=== PATIENT | female | born 1940 | race Caucasian/White ===

== ENCOUNTER 2020-09-01 13:37 | Emergency (ER) | payer MEDICARE, SELFPAY ==
--- NOTE | 2020-09-01 | ECG_ITS ---
Test Reason : CHESTPAIN Blood Pressure : / mmHG Vent. Rate : 070 BPM Atrial Rate : 070 BPM P-R Int : 132 ms QRS Dur : 064 ms QT Int : 430 ms P-R-T Axes : 000 -25 122 degrees QTc Int : 464 ms Sinus rhythm with marked sinus arrhythmia with occasional Premature ventricular complexes Nonspecific ST and T wave abnormality Abnormal ECG When compared with ECG of 01-JAN-2015 13:49, Premature ventricular complexes are now Present Aberrant conduction is no longer Present Nonspecific T wave abnormality now evident in Anterolateral leads Referred By: Generic ED Physician Electronically Signed By:Frederick Amin
[2020-09-01 14:55] VITALS: BP 174/84; PULSE 78; RESP 16; TEMP 36; O2SAT 98; BMI 24.5
[2020-09-01 17:13] LABS: Basophils Percent Auto 0.2 % (0-2); Eosinophils Absolute Auto 0.2 X10*3/uL (0.0-0.4); Eosinophils Percent Auto 1.7 % (0-4); Hematocrit 41.6 % (37-47); Hemoglobin 13.8 g/dl (12.0-16.0); Imm Gran Abs Auto 0.04 X10*3/uL (0.00-0.03); Imm Gran Pct Auto 0.3 % (0.0-0.4); Lymphocytes Absolute Auto 2.5 X10*3/uL (1.2-4.9); MANUAL DIFF FLAG NO; Mean Corpuscular HGB Conc 33.2 g/dl (31.0-35.0); Mean Corpuscular Hemoglobin 31.9 pg (27.0-33.0); Mean Corpuscular Volume 96.3 fL (80-98); Mean Platelet Volume 10.7 fL (9.4-12.3); Monocytes Absolute Auto 0.8 X10*3/uL (0.1-1.2); Monocytes Percent Auto 6.7 % (2-11); Neutrophils Absolute Auto 8.2 X10*3/uL (2.0-8.3); Neutrophils Percent Auto 70.1 % (45-73); Platelet Count 204 X10*3/uL (160-400); Red Blood Count 4.32 X10*6/uL (4.20-5.50); Red Cell Distribution Width 13.8 % (11.0-16.0); White Blood Count 11.8 X10*3/uL (4.8-10.8)
--- NOTE | 2020-09-01 17:21 | XR_ITS ---
EXAMINATION: XR CHEST XR THORACIC SPINE XR LUMBAR SPINE CLINICAL INFORMATION: Pain status post fall COMPARISON: Chest x-ray dated 09/23/2019 TECHNIQUE: Portable AP view of the chest AP and lateral views of the thoracic spine AP, lateral and coned-down views of the lumbosacral spine FINDINGS: Chest: Normal symmetric lung volumes. No parenchymal consolidation. No pleural effusion. No pneumothorax. Cardiomediastinal silhouette and pulmonary vascularity are within normal limits. No acute osseous abnormalities. Thoracic spine: No acute fractures or subluxations. Vertebral body heights maintained. Endplate osteophytes present throughout the thoracic spine. Paraspinal soft tissues unremarkable. Lumbar spine: No acute fracture or subluxation. Posterior spinal fusion hardware present at L4-L5 consisting of bilateral paraspinal rods and transverse screws, and interbody spacer at L4-L5. Vertebral body heights maintained. There is loss of disc space height at L2-L3, L3-L4 and L5-S1. Moderate levoconvex lumbar scoliosis centered at L3-L4. Paraspinal soft tissues unremarkable. XR/XR thoracic spine 2V IMPRESSION: * Lungs are clear. No rib fractures or pneumothorax. * No acute fracture or subluxation in the thoracic or lumbar spine. * No evidence of hardware failure or complication with respect to the instrument posterior spinal fusion at L4-L5.
--- NOTE | 2020-09-01 17:21 | XR_ITS ---
EXAMINATION: XR CHEST XR THORACIC SPINE XR LUMBAR SPINE CLINICAL INFORMATION: Pain status post fall COMPARISON: Chest x-ray dated 09/23/2019 TECHNIQUE: Portable AP view of the chest AP and lateral views of the thoracic spine AP, lateral and coned-down views of the lumbosacral spine FINDINGS: Chest: Normal symmetric lung volumes. No parenchymal consolidation. No pleural effusion. No pneumothorax. Cardiomediastinal silhouette and pulmonary vascularity are within normal limits. No acute osseous abnormalities. Thoracic spine: No acute fractures or subluxations. Vertebral body heights maintained. Endplate osteophytes present throughout the thoracic spine. Paraspinal soft tissues unremarkable. Lumbar spine: No acute fracture or subluxation. Posterior spinal fusion hardware present at L4-L5 consisting of bilateral paraspinal rods and transverse screws, and interbody spacer at L4-L5. Vertebral body heights maintained. There is loss of disc space height at L2-L3, L3-L4 and L5-S1. Moderate levoconvex lumbar scoliosis centered at L3-L4. Paraspinal soft tissues unremarkable. XR/XR chest 1V IMPRESSION: * Lungs are clear. No rib fractures or pneumothorax. * No acute fracture or subluxation in the thoracic or lumbar spine. * No evidence of hardware failure or complication with respect to the instrument posterior spinal fusion at L4-L5.
--- NOTE | 2020-09-01 17:23 | ED.CHESTPAIN ---
HPI - Chest Pain General Chief Complaint: Chest Pain Stated Complaint: chest pain,fell and back pain Time Seen by Provider: 09/01/20 17:12 Source: patient Mode of arrival: ambulatory Limitations: no limitations History of Present Illness HPI narrative: Patient comes to the emergency room complaining of thoracic spine pain anxiety void pain. Patient states 2 days ago, patient was out shopping, her foot got stuck in the shopping cart and fell landing on her back. Patient states she was able to get up, however over the next 2 days, she started complaining of back pain. Patient denies numbness tingling in upper lower extremities. Patient states sometimes it hurts more whenever she coughs or if she takes deep breaths. Patient denies any chest pain. Patient did not hit her head, did not lose consciousness, not on blood thinners. Earlier this morning patient took tramadol and helped the pain. Related Data Home Medications Medication Instructions Recorded Confirmed carvedilol 1 tab PO BID 09/01/20 09/01/20 tizanidine 1 tab PO BEDTIME 09/01/20 09/01/20 tramadol 1 tab PO Q6H PRN 09/01/20 09/01/20 trazodone 1 tab PO BEDTIME PRN 09/01/20 09/01/20 Previous Rx's Medication Instructions Recorded hydrocodone-acetaminophen [Vicodin 1 tab PO Q6-8H PRN #14 tab 09/01/20 HP] Allergies Allergy/AdvReac Type Severity Reaction Status Date / Time oxycodone [From OXYCONTIN] Allergy Intermediate NAUSEA & Unverified 06/03/20 14:56 VOMITING, hallucinations, vomiting OxyContin AdvReac Unknown pass out Uncoded 05/21/20 00:00 Review of Systems Review of Systems: Constitutional : No Weight loss, No Fever, No Chills, No Night Sweats, No Fatigue, No Malaise ENT/Mouth : No Hearing loss, No Ear Pain, No Nasal Congestion, No Sinus Pain, No Hoarseness, No sore throat, No Rhinorrhea, No Swallowing Difficulty Eyes: No Eye Pain, No Swelling, No Redness, No Foreign Body, No Discharge, No Vision Changes Cardiovascular : No Chest Pain, No SOB, No Dyspnea on Exertion, No Orthopnea, No Edema, No Palpitations Respiratory : No Cough, No Sputum, No Wheezing, No Smoke Exposure, No Dyspnea Gastrointestinal : No Nausea, No Vomiting, No Diarrhea, No Constipation, No abdominal Pain, No Hematochezia, No Melena Genitourinary : no irregular bleeding, No Dysuria, No Urinary Frequency, No Hematuria, No Urinary Incontinence, No Urgency, No Flank Pain, No Urinary Flow Changes, No Hesitancy Musculoskeletal : Complaining of back pain in the thoracic area and on the chest over the xyphoid process,No joint pain, No Myalgias, No Joint Swelling Skin : No Skin Lesions, No rash, 3 ecchymosis in the left arm Neuro : No Weakness, No Numbness, No Paresthesias, No Loss of Consciousness, No Dizziness, No Headache Psych : No Anxiety/Panic, No Depression, No SI/HI/AH/VH, No Social Issues, Heme/Lymph: No Bruising, No Bleeding,No Lymphadenopathy Endocrine : No Polyuria, No Polydipsia, No Temperature Intolerance [facility] Past Medical History Medical History (Updated 09/01/20 @ 19:17 by Shani Carey MD) Brain aneurysm Diverticulosis No known health problems Social History Social History Alcohol intake: never Smoked in Last 30 Days: No Use of substances other than those prescribed or required for medical reasons: No Advance Directives: No Advance Directives Information Provided: Yes Physical Exam Vital Signs: Vital Signs: Last Vital Signs Temp 96.8 F 09/01/20 14:55 Pulse 78 09/01/20 17:42 Resp 16 09/01/20 17:42 BP 181/91 H 09/01/20 17:42 Pulse Ox 98 09/01/20 17:42 Body Mass Index 24.5 Appearance: Alert. Oriented X3. No acute distress. Eyes: Pupils equal, round and reactive to light. ENT: Pharynx normal. Neck: Normal inspection. Neck supple. No lymph nodes noted. No crepitus CVS: Normal heart rate and rhythm. Pulses normal. Normal S1 and S2 Respiratory: No respiratory distress. Breath sounds normal. No Wheezing. No rales , pain to palpation over the xiphoid process Abdomen: Soft and nontender. No rigidity. No distention. good BS x4 Back: No C-spine tenderness, mild to moderate pain to palpation over the midthoracic area and upper lumbar area, patient able to sit up by herself Skin: Skin warm and dry. Three ecchymosis in the left upper extremity, Extremities: No lower extremity edema. No lower extremity edema. No Lacerations. No Rash, patient able to flex and extend all extremities, no hip pain, patient ambulatory Neuro: Oriented X 3. No motor deficit. No sensory deficit. Moving all extermities. No slurred speech. Course Course Course Narrative: I discussed the x-rays with the patient, no acute fracture. At this time, PE is not suspected, wells score for PE 0, patient is not tachycardic, no shortness of breath, oxygen saturation 98%. No previous history of PEs, no recent history of immobility I discussed with the patient that we could offer physical therapy/short-term rehab, case management consult, patient declined. MDM - Chest Pain Lab Data Result diagrams: 09/01/20 17:06 09/01/20 17:06 Labs: Lab Results 09/01/20 09/01/20 09/01/20 Range/Units 17:06 17:06 17:06 WBC 11.8 H (4.8-10.8) X10*3/uL RBC 4.32 (4.20-5.50) X10*6/uL Hgb 13.8 (12.0-16.0) g/dl Hct 41.6 (37-47) % MCV 96.3 (80-98) fL MCH 31.9 (27.0-33.0) pg MCHC 33.2 (31.0-35.0) g/dl RDW 13.8 (11.0-16.0) % Plt Count 204 (160-400) X10*3/uL MPV 10.7 (9.4-12.3) fL Immature Gran % (Auto) 0.3 (0.0-0.4) % Neut % (Auto) 70.1 (45-73) % Lymph % (Auto) 21.0 (20-40) % Bel[place]ami % (Auto) 6.7 (2-11) % Eos % (Auto) 1.7 (0-4) % Baso % (Auto) 0.2 (0-2) % Lymph # (Auto) 2.5 (1.2-4.9) X10*3/uL [place] # (Auto) 0.8 (0.1-1.2) X10*3/uL Eos # (Auto) 0.2 (0.0-0.4) X10*3/uL Baso # (Auto) 0.0 (0.0-0.2) X10*3/uL Abs Immat Gran (auto) 0.04 H (0.00-0.03) X10*3/uL Absolute Neuts (auto) 8.2 (2.0-8.3) X10*3/uL Absolute Nucleated RBC 0.000 (0.0-0.012) X10*3/uL Nucleated RBC % (auto) 0.0 (0.0-0.2) /100WBC Hold Blue Top SEE NOTE Sodium 141 (135-145) mmol/L Potassium 4.4 (3.3-5.1) mmol/l Chloride 104 (96-108) mmol/L Carbon Dioxide 28 (22-29) mmol/L Anion Gap 13 (12-20) BUN 24 H (9-16) mg/dL Creatinine 1.02 (0.5-1.4) mg/dL Estim Creat Clear Calc 37.7 Estimated GFR 52 Random Glucose 98 (60-115) mg/dL Calcium 9.2 (8.4-10.2) mg/dL Troponin I High Sens (<3.5-17.0) ng/L 09/01/ Range/Units 17:06 WBC (4.8-10.8) X10*3/uL RBC (4.20-5.50) X10*6/uL Hgb (12.0-16.0) g/dl Hct (37-47) % MCV (80-98) fL MCH (27.0-33.0) pg MCHC (31.0-35.0) g/dl RDW (11.0-16.0) % Plt Count (160-400) X10*3/uL MPV (9.4-12.3) fL Immature Gran % (Auto) (0.0-0.4) % Neut % (Auto) (45-73) % Lymph % (Auto) (20-40) % [place]ami % (Auto) (2-11) % Eos % (Auto) (0-4) % Baso % (Auto) (0-2) % Lymph # (Auto) (1.2-4.9) X10*3/uL [place]ami # (Auto) (0.1-1.2) X10*3/uL Eos # (Auto) (0.0-0.4) X10*3/uL Baso # (Auto) (0.0-0.2) X10*3/uL Abs Immat Gran (auto) (0.00-0.03) X10*3/uL Absolute Neuts (auto) (2.0-8.3) X10*3/uL Absolute Nucleated RBC (0.0-0.012) X10*3/uL Nucleated RBC % (auto) (0.0-0.2) /100WBC Hold Blue Top Sodium (135-145) mmol/L Potassium (3.3-5.1) mmol/l Chloride (96-108) mmol/L Carbon Dioxide (22-29) mmol/L Anion Gap (12-20) BUN (9-16) mg/dL Creatinine (0.5-1.4) mg/dL Estim Creat Clear Calc Estimated GFR Random Glucose (60-115) mg/dL Calcium (8.4-10.2) mg/dL Troponin I High Sens 5.1 (<3.5-17.0) ng/L Imaging Data Lumbar spine x-ray: Radiologist's impression: Chest: Normal symmetric lung volumes. No parenchymal consolidation. No pleural effusion. No pneumothorax. Cardiomediastinal silhouette and pulmonary vascularity are within normal limits. No acute osseous abnormalities. Thoracic spine: No acute fractures or subluxations. Vertebral body heights maintained. Endplate osteophytes present throughout the thoracic spine. Paraspinal soft tissues unremarkable. Lumbar spine: No acute fracture or subluxation. Posterior spinal fusion hardware present at L4-L5 consisting of bilateral paraspinal rods and transverse screws, and interbody spacer at L4-L5. Vertebral body heights maintained. There is loss of disc space height at L2-L3, L3-L4 and L5-S1. Moderate levoconvex lumbar scoliosis centered at L3-L4. Paraspinal soft tissues unremarkable. XR/XR lumbar spine 2-3V IMPRESSION: * Lungs are clear. No rib fractures or pneumothorax. * No acute fracture or subluxation in the thoracic or lumbar spine. * No evidence of hardware failure or complication with respect to the instrument posterior spinal fusion at L4-L5. Discharge Plan Discharge Clinical Impression: Back pain of thoracolumbar region Contusion Qualifiers: Contusion area: thoracic wall Front or back of thoracic wall: back Patient Disposition: Home, Self-Care Additional Instructions: Please follow-up with your primary care physician tomorrow. If you have any worsening or new symptoms, please return to the emergency room or call 911 Prescriptions: New hydrocodone-acetaminophen [Vicodin HP] 10-300 mg tablet 1 tab PO Q6-8H PRN (Reason: pain) Qty: 14 RF: 0 No Action trazodone 50 mg tablet 1 tab PO BEDTIME PRN (Reason: Sleep) RF: 0 tizanidine 4 mg tablet 1 tab PO BEDTIME RF: 0 tramadol 50 mg tablet 1 tab PO Q6H PRN (Reason: Pain) RF: 0 carvedilol 3.125 mg tablet 1 tab PO BID RF: 0
[2020-09-01] MEDS: traMADoL HCL 50 MG TABLET PO (17:38)
--- NOTE | 2020-09-01 17:40 | XR_ITS ---
EXAMINATION: XR CHEST XR THORACIC SPINE XR LUMBAR SPINE CLINICAL INFORMATION: Pain status post fall COMPARISON: Chest x-ray dated 09/23/2019 TECHNIQUE: Portable AP view of the chest AP and lateral views of the thoracic spine AP, lateral and coned-down views of the lumbosacral spine FINDINGS: Chest: Normal symmetric lung volumes. No parenchymal consolidation. No pleural effusion. No pneumothorax. Cardiomediastinal silhouette and pulmonary vascularity are within normal limits. No acute osseous abnormalities. Thoracic spine: No acute fractures or subluxations. Vertebral body heights maintained. Endplate osteophytes present throughout the thoracic spine. Paraspinal soft tissues unremarkable. Lumbar spine: No acute fracture or subluxation. Posterior spinal fusion hardware present at L4-L5 consisting of bilateral paraspinal rods and transverse screws, and interbody spacer at L4-L5. Vertebral body heights maintained. There is loss of disc space height at L2-L3, L3-L4 and L5-S1. Moderate levoconvex lumbar scoliosis centered at L3-L4. Paraspinal soft tissues unremarkable. XR/XR lumbar spine 2-3V IMPRESSION: * Lungs are clear. No rib fractures or pneumothorax. * No acute fracture or subluxation in the thoracic or lumbar spine. * No evidence of hardware failure or complication with respect to the instrument posterior spinal fusion at L4-L5.
[2020-09-01 17:42] VITALS: BP 181/91; PULSE 78; RESP 16; O2SAT 98
[2020-09-01 17:48] LABS: Anion Gap 13 (12-20); Blood Urea Nitrogen 24 mg/dL (9-16); Calcium 9.2 mg/dL (8.4-10.2); Carbon Dioxide 28 mmol/L (22-29); Chloride 104 mmol/L (96-108); Creatinine Clr Calc Pharmacy 37.7; Estimated Glomerular Filt Rate 52; Glucose Random 98 mg/dL (60-115); Potassium 4.4 mmol/l (3.3-5.1); Sodium 141 mmol/L (135-145)
[2020-09-01 17:57] LABS: Troponin-I High Sensitivity 5.1 ng/L (<3.5-17.0)
[2020-09-01 18:18] VITALS: PULSE 78
--- NOTE | 2020-09-01 18:41 | PC.NURSE ---
Pt back from xray- pt asking about wait times for results, educated, vocalized annoyance. Pt offered fluids, tv, ect while waiting, declined.
== END 2020-09-01 19:22 | disposition home or self-care (01) ==
PROVIDERS: Emergency Provider Emergency Medicine
DX: M54.89 Other dorsalgia (principal); S20.229A Contusion of unspecified back wall of thorax, initial encounter; W01.0XXA Fall on same level from slipping, tripping and stumbling without subsequent striking against object, initial encounter; Y93.89 Activity, other specified; Y92.512 Supermarket, store or market as the place of occurrence of the external cause; Y99.9 Unspecified external cause status
CPT/HCPCS: 36415; 71045; 72070; 72100; 80048; 84484; 85025; 93005; 99284

== ENCOUNTER 2021-03-16 06:26 | Outpatient (REF) | payer MEDICARE, SELFPAY ==
--- NOTE | ~2021-03-16 | XR_ITS ---
EXAMINATION: XR HIP, LEFT CLINICAL INFORMATION: Post hip replacement COMPARISON: Previous x-ray most recent June 2019 TECHNIQUE: One view of the pelvis and 2 views of the left hip. FINDINGS: There is a left hip replacement in satisfactory position. No fracture, dislocation or x-ray evidence of loosening is seen. There is a right hip replacement that appears unchanged. Stem of the femoral prosthesis is not included in the imaging. Bones of the pelvis are unremarkable. There are postsurgical changes to the lower lumbar spine. Soft tissues are normal. XR/XR hip LT w PEL1V IMPRESSION: Satisfactory appearance of left hip replacement.
== END 2021-03-16 06:27 | disposition home or self-care (01) ==
LOC: HO.HOSX 06:26
PROVIDERS: Visit Provider Orthopaedic Surgery
DX: T84.84XA Pain due to internal orthopedic prosthetic devices, implants and grafts, initial encounter (principal); Z96.642 Presence of left artificial hip joint
CPT/HCPCS: 73502; 99212

== ENCOUNTER 2021-04-13 10:00 | Outpatient (RCR) | payer MEDICARE, SELFPAY ==
--- NOTE | 2021-04-08 12:39 | MHC.PT.EP ---
[facility] [place] Office [place] Office [place] Office [address] Suzan Krishna [address] [phone] F: [phone] F: [phone] F: [phone] F: [phone] Physical Therapy Plan of Care Date of Evaluation: Date of Surgery: L THR 2 YRS AGO Diagnosis: BURSITIS OF L HIP Assessment: Pt IS 80 YO F REFERRED TO PT FROM DR MCINTOSH WITH L HIP BURSITIS. Pt HAD L THR PER DR MCINTOSH ABOUT 2 YRS AGO AND REPORTS HAVING TROUBLE WITH IT EVER SINCE. OF NOTE, Pt ALSO HAD R THR PER NEOTea ABOUT 4 YRS AGO WITH LESS ISSUES. PRESENTS WITH SIGNIF TTP L LAT HIP WITH LIMITED HIP ROM AND STRENGTH WITH ANTALGIC GT WITHOUT AD. Pt SHOULD BENEFIT FROM PT TO ADDRESS THESE ISSUES Frequency and Duration: The patient will be seen 2X/WK X 6 WKS Short Term Goals: 1. IMPROVED GT WITH ST CANE 2. Pt ABLE TO LIFT L LE ONTO MAT WITHOUT USING HANDS 3. Pt TO REPORT IMPROVED COMFORT WITH SLEEP 4. Pt TO BE ABLE TO FULLY EXTEND L KNEE WITHOUT INCREASE IN L HIP PAIN Intermediate Goals: 1. I HEP WITH DC EX PLAN 2. DECREASED L HIP PAIN AT LEAST 50% WITH ADLS 3. L HIP STRENGTH AT LEAST 4/5 T/O 4. GT W/O AD WITHOUT ANTALGIA Treatment Plan: Modalities to reduce pain, spasms and effusion. Manual therapy to restore motion and function. Therapeutic exercise to improve strength and flexibility. Neuromuscular re-education for posture and balance. Therapeutic activities to return to functional activities of daily living. Electronically signed by: BENI LOUIE PT Please sign and return to therapist. Thank you for your referral.
--- NOTE | 2021-04-20 17:54 | MHC.PT.DC ---
[facility] [place] [facility] [place] Office [place] Office [address] Suzan Krishna [address] [phone] F: [phone] F: [phone] F: [phone] F: [phone] Physical Therapy Discharge Report Diagnosis: BURSITIS OF L HIP Date of Surgery: L THR 2 YRS AGO Date of Evaluation: 04/08/21 Date of Discharge: Treatments to Date: 3 Cancellations to Date: No Shows to Date: Discharge Status: Patient Elected to Stop Discharge Summary: Pt SEEN FOR 3 VISITS (IONTOPHORESIS WITH DEXAMETHASONE RX) FOR L HIP BURSITIS. REPORTS NO CHANGE IN SXS AND CALLED TO DC HERSELF BECAUSE SHE RECEIVED INJECTION WITH DR MCINTOSH YESTERDAY AND WANTS TO SEE HOW SHE DOES WITH IT Electronically signed by: BENI LOUEI PT Please sign and return to therapist. Thank you for your referral.
== END 2021-04-20 18:01 | disposition home or self-care (01) ==
LOC: HO.PT 10:00
PROVIDERS: Visit Provider Orthopaedic Surgery
DX: M70.62 Trochanteric bursitis, left hip (principal); Z96.642 Presence of left artificial hip joint
CPT/HCPCS: 97033; 97140; 97162; 97535

== ENCOUNTER → 2021-04-19 09:33 | Outpatient (BNVA) | payer MEDICARE, SELFPAY | PROVIDERS: Visit Provider Orthopaedic Surgery | DX: M70.62 Trochanteric bursitis, left hip (principal) | CPT/HCPCS: 20610; 99212; J1040 ==

== ENCOUNTER 2021-07-05 | Outpatient (REF) | payer MEDICARE, SELFPAY ==
[2021-07-06 13:14] LABS: Influenza A PCR NEGATIVE (Negative); Influenza B PCR NEGATIVE (Negative); Resp Syncy Virus RNA Qual PCR NEGATIVE (Negative); SARS COV2 PCR INHOUSE NEGATIVE (Negative)
== END 2021-07-05 00:01 | disposition home or self-care (01) ==
LOC: HO.LNP
PROVIDERS: Visit Provider Internal Medicine
DX: Z20.822 Contact with and (suspected) exposure to COVID-19 (principal); R43.9 Unspecified disturbances of smell and taste
CPT/HCPCS: 0241U

== ENCOUNTER 2021-07-06 11:51 | Outpatient (REF) | payer MEDICARE, SELFPAY | END 2021-07-06 11:52 | disposition home or self-care (01) | LOC: HO.LNP 11:51 | PROVIDERS: Visit Provider Internal Medicine | DX: Z13.89 Encounter for screening for other disorder (principal) ==

== ENCOUNTER 2021-08-01 11:00 | Outpatient (RCR) | payer MEDICARE, SELFPAY ==
--- NOTE | 2021-08-01 12:20 | MHC.PT.EP ---
[facility] [place] Office [place] Office [place] Office [address] Suzan Krishna [address] [phone] F: [phone] F: [phone] F: [phone] F: [phone] Physical Therapy Plan of Care Date of Evaluation: Date of Surgery: NA Diagnosis: ADHESIVE CAPSULITIS L SHLDER Assessment: Pt IS 80 YO F REFERRED TO PT FROM PCP (ITALO BEARD) WITH ADHESIVE CAPSULITIS L SHLDER. Pt REPORTS SHE HAD RC REPAIR ON THAT SHLDER IN PAST (>5 YRS AGO) WITH IMPROVEMENT NOTED. Pt REPORTS NOW LIMITED MOVEMENT IN L SHLDER (NOT SURE WHEN OR HOW IT STARTED). Pt IS A POOR HISTORIAN. REPORTS BACK SURGERY AND THR R AND L BUT UNSURE OF TIME FRAMES. PER RECORD, Pt HAD L THR IN 2019. ALSO PER RECORD, Pt HAD A FALL LAST YEAR WHICH BROUGHT HER TO THE ER (WAS RECOMMENDED STR BUT SHE DECLINED). Frequency and Duration: The patient will be seen 2X/WK X 6 WKS Short Term Goals: 1. INCREASED AWARENESS POSTURE AND SHLDER CARE 2. 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 I HEP WITH DC EX PLAN 2. INCREASED L SHLDER ROM AT LEAST 20 DEGREES FOR SHLDER FLEX/ABD/ER 3. DECREASED L UPPER ARM PAIN AT LEAST 50% WITH ADLS Treatment Plan: Modalities to reduce pain, spasms and effusion. Manual therapy to restore motion and function. Therapeutic exercise to improve strength and flexibility. Neuromuscular re-education for posture and balance. Therapeutic activities to return to functional activities of daily living. Electronically signed by: BENI LOUIE PT Please sign and return to therapist. Thank you for your referral.
== END 2021-08-15 13:29 | disposition home or self-care (01) ==
LOC: HO.PT 11:00
PROVIDERS: PCP Family Medicine; Visit Provider Family Medicine
DX: M75.02 Adhesive capsulitis of left shoulder (principal)
CPT/HCPCS: 97110; 97140; 97162

== ENCOUNTER 2022-10-05 10:45 | Outpatient (REF) | payer MEDICARE, SELFPAY ==
--- NOTE | ~2022-10-05 | XR_ITS ---
EXAMINATION: XR LUMBOSACRAL SPINE CLINICAL INFORMATION: Arthrodesis. COMPARISON: Most recent lumbar spine radiographs dated 09/01/2020. TECHNIQUE: Three views of the lumbosacral spine. FINDINGS: Redemonstration of posterior stabilization hardware at L5-S1 without hardware fracture. No perihardware lucency to suggest loosening or infection. Associated intervertebral disc hardware. Stable levocurvature of the lower lumbar spine, unchanged. No acute fracture or subluxation. No loss of vertebral body height. Multilevel loss of intervertebral disc height with endplate osteophytes, slightly progressed when compared to the prior examination. Multilevel bilateral facet arthropathy, increased when compared to the prior examination. Atherosclerotic calcifications. XR/XR lumbar spine 2-3V IMPRESSION: 1. Posterior stabilization hardware at L5-S1 without evidence of complication. 2. Multilevel degenerative disc disease and bilateral facet arthropathy, slightly progressed when compared to the prior examination.
== END 2022-10-05 10:46 | disposition home or self-care (01) ==
LOC: HO.HMGCX 10:45
PROVIDERS: PCP Family Medicine; Visit Provider Internal Medicine
DX: M54.50 Low back pain, unspecified (principal); Z96.7 Presence of other bone and tendon implants; Z98.1 Arthrodesis status
CPT/HCPCS: 72100

== ENCOUNTER 2023-05-01 11:28 | Outpatient (AMB) | payer MEDICARE, SELFPAY ==
--- OUTSIDE RECORDS SUMMARY | 2023-05-01 11:30 | XMS_ITS | Continuity of Care Document ---
Author Name Unknown Organization [facility] y Address [address] [place] [address], [address] [place] [address]- Care Team Providers Care Computer Art Instructor Name Role Phone Kristin Jaramillo MD Primary Care Physician [phone] [place] [facility] [place] 07/18/20 [facility] [address] [place] [address], [address] [place] [address]- [facility] Allergies, Adverse Reactions, Alerts Substance Reaction Severity Status OxyCONTIN passed out,vomiting Active Medications acetaminophen-HYDROcodone 325 mg-5 mg oral tablet 2 tablet, By Mouth, Every 6 hours, PRN Pain , Severe, # 80 tablet, 0 Refills, Maintenance, 06/12/2013:24:00 EDT, Tablet, [id number], Partial fill upon patient request, 2 tablet By Mouth Every 6 hours,PRN:Pain , Severe, 157.48, cm, 06/12/20... Start Date: 06/12/20 Status: Ordered acetaminophen-oxyCODONE 325 mg-5 mg oral tablet 1, tablet, By Mouth, Every 4 hours, PRN, # 30 tablet, Refills 0, Tot. Refills 0, Maintenance, for pain, 06/29/20 14:32:00 EDT, Route to Pharmacy Electronically, [id number] Tablet, Partial fill upon patient request, 157.48, cm, 06/12/20 8:26... Start Date: 06/29/20 Status: Ordered carvedilol 3.125 mg oral tablet 3.125 mg, 1, tablet, By Mouth, 2 times a day, Maintenance, 06/11/20 18:02:00 EDT Start Date: 06/11/20 Status: Ordered Centrum Silver Women's 1 tablet, By Mouth, Daily in AM, Maintenance, 06/08/20 9:52:00 EDT Start Date: 06/08/20 Status: Ordered omeprazole 20 mg oral enteric coated capsule 1 capsule = 20 mg, By Mouth, Daily, Maintenance, 06/11/20 18:02:00 EDT, EC Capsule Start Date: 06/11/20 Status: Ordered tiZANidine 4 mg oral tablet 4 mg, 1, tablet, By Mouth, Daily at bedtime, PRN for muscle spasm, # 30 tablet, Refills 0, Tot. Refills 0, Maintenance, 07/13/20 12:00:00 EDT, Route to Pharmacy Electronically, [id number],157.48, cm, 07/12/20 15:39:00 EDT, Height, 64, kg,... Start Date: 07/13/20 Status: Ordered tiZANidine 4 mg oral tablet 4 mg, 1, tablet, By Mouth, 3 times a day, # 90 tablet, Refills 0, Tot. Refills 0, Maintenance, 06/12/20 12:54:00 EDT, Route to Pharmacy Electronically, [id number], 157.48, cm, 06/12/20 8:26:00 EDT, Height, 64, kg, 06/11/20 7:18:00 EDT, Dry... Start Date: 06/12/20 Status: Ordered traZODone 50 mg oral tablet 50 mg, 1, tablet, By Mouth, Daily at bedtime, PRN, as needed Start Date: 06/11/20 Status: Ordered
--- OUTSIDE RECORDS SUMMARY | 2023-05-01 11:30 | XMS_ITS | Continuity of Care Document ---
Author Name Unknown Organization [facility] Address [address] [place] [address], [address] [place] [address]- Care Team Providers Care Cushion Spring Assembler Name Role Phone Kristin Jaramillo MD Primary Care Physician [phone] [place] [facility] [place]20 - 05/18/20 [facility] [address] [place] [address], [address] [place] [address]- [facility] Attending Physician: Raphael Segura MD Referring Physician: Kristin Jaramillo MD Allergies, Adverse Reactions, Alerts Substance Reaction Severity Status OxyCONTIN Active Medications Advil By Mouth, 0, 0, 03/10/05 1:22:52, Constant Indicator Start Date: 03/10/05 Status: Ordered Carvedilol By Mouth, Refills 0, Maintenance, 05/05/20 13:45:00 EDT Start Date: 05/05/20 Status: Ordered Omeprazole By Mouth, Daily, 0 Refills, Maintenance, 05/05/20 13:45:00 EDT Start Date: 05/05/20 Status: Ordered traMADol 50 mg oral tablet 1 tablet = 50 mg, By Mouth, Every 6 hours, 0 Refills, Maintenance, 05/05/20 13:45:00 EDT Start Date: 05/05/20 Status: Ordered Trazodone By Mouth, 2 times a day, 0 Refills, Maintenance, 05/05/20 13:45:00 EDT Start Date: 05/05/20 Status: Ordered Vital Signs Most recent to oldest [Reference Range]: 1 Height 156 cm (05/05/20 1:44 PM) Weight 63 kg (05/05/20 1:44 PM) Body Mass Index [18.5-24.99] 25.89 *H* (05/05/20 1:44 PM)
--- OUTSIDE RECORDS SUMMARY | 2023-05-01 11:30 | XMS_ITS | Continuity of Care Document ---
Author Name Unknown Organization [facility] Address [address] [place] [address], [address] [place] [address]- Care Team Providers Care Manager Metal Name Role Phone Kristin Jaramillo MD Primary Care Physician [phone] Encounter [facility] [place] Date(s): 08/17/20 - 09/16/20 [facility] [address] [place] [address], [address] [place], [place] [address] Allergies, Adverse Reactions, Alerts Substance Reaction Severity Status OxyCONTIN passed out,vomiting Active Medications acetaminophen-HYDROcodone 325 mg-5 mg oral tablet 2 tablet, By Mouth, Every 6 hours, PRN Pain , Severe, # 80 tablet, 0 Refills, Maintenance, 06/12/2013:24:00 EDT, Tablet, [facility], Partial fill upon patient request, 2 tablet By Mouth Every 6 hours,PRN:Pain , Severe, 157.48, cm, 06/12/20... Start Date: 06/12/20 Status: Ordered acetaminophen-oxyCODONE 325 mg-5 mg oral tablet 1, tablet, By Mouth, Every 4 hours, PRN, # 30 tablet, Refills 0, Tot. Refills 0, Maintenance, for pain, 06/29/20 14:32:00 EDT, Route to Pharmacy Electronically, [facility]278 Tablet, Partial fill upon [...] 07/13/20 12:00:00 EDT, Route to Pharmacy Electronically, [facility],157.48, cm, 07/12/20 15:39:00 EDT, Height, 64, kg,... Start Date: 07/13/20 Status: Ordered tiZANidine 4 mg oral tablet 4 mg, 1, tablet, By Mouth, 3 times a day, # 90 tablet, Refills 0, Tot. Refills 0, Maintenance, 06/12/20 12:54:00 EDT, Route to Pharmacy Electronically, [facility], 157.48, cm, 06/12/20 8:26:00 EDT, Height, 64, kg, 06/11/20 7:18:00 EDT, Dry... Start Date: 06/12/20 Status: Ordered traZODone 50 mg oral tablet 50 mg, 1, tablet, By Mouth, Daily at bedtime, PRN, as needed Start Date: 06/11/20 Status: Ordered
--- OUTSIDE RECORDS SUMMARY | 2023-05-01 11:30 | XMS_ITS | Continuity of Care Document ---
Author Name Unknown Organization [facility] Address [address] [place] [address] [address], [address] [place] [address]- Care Team Providers Care Outfitter Cabin Name Role Phone Kristin Jaramillo MD Primary Care Physician [phone] [place] [facility] [place](s): 01/24/22 - 02/23/22 [facility] [address] [place] [address] Drive, [address] [place], [place] [address] Attending Physician: Brayan Ferrera Admitting Physician: AdmtrBrayan Referring Physician: Admtr ArDaisy Allergies, Adverse Reactions, Alerts Substance Reaction Severity Status OxyCONTIN passed out,vomiting Active Medications acetaminophen-HYDROcodone 325 mg-5 mg oral tablet 2 tablet, By Mouth, Every 6 hours, PRN Pain , Severe, # 80 tablet, 0 Refills, Maintenance, 06/12/2013:24:00 EDT, Tablet, [facility], Partial fill upon patient request, 2 tablet By Mouth Every 6 hours,PRN:Pain , Severe, 157.48, cm, 06/12/20... Start Date: 06/12/20 Status: Ordered acetaminophen-oxyCODONE 325 mg-5 mg oral tablet 1, tablet, By Mouth, Every 4 hours, PRN, # 30 tablet, Refills 0, Tot. Refills 0, Maintenance, for pain, 06/29/20 14:32:00 EDT, Route to Pharmacy Electronically, [facility] Tablet, Partial fill upon patient [...] 07/13/20 12:00:00 EDT, Route to Pharmacy Electronically, [facility],157.48, cm, 07/12/20 15:39:00 EDT, Height, 64, kg,... Start Date: 07/13/20 Status: Ordered tiZANidine 4 mg oral tablet 4 mg, 1, tablet, By Mouth, 3 times a day, # 90 tablet, Refills 0, Tot. Refills 0, Maintenance, 06/12/20 12:54:00 EDT, Route to Pharmacy Electronically, [facility], 157.48, cm, 06/12/20 8:26:00 EDT, Height, 64, kg, 06/11/20 7:18:00 EDT, Dry... Start Date: 06/12/20 Status: Ordered traZODone 50 mg oral tablet 50 mg, 1, tablet, By Mouth, Daily at bedtime, PRN, as needed Start Date: 06/11/20 Status: Ordered
--- OUTSIDE RECORDS SUMMARY | 2023-05-01 11:30 | XMS_ITS | Continuity of Care Document ---
Author Name Unknown Organization [facility] ter Address [address] [place] [address]- Care Team Providers Care Field Care Advocate Name Role Phone Kristin Jaramillo MD Primary Care Physician [place] [facility] [place](s): 06/13/20 - 07/13/[address] [address]- [facility] Attending Physician: Not on Staff, Attending MD Admitting Physician: Not on Staff, Admitting MD Referring Physician: Not on Staff, Referring MD Allergies, Adverse Reactions, Alerts Substance Reaction Severity Status OxyCONTIN passed out,vomiting Active Medications acetaminophen-HYDROcodone 325 mg-5 mg oral tablet 2 tablet, By Mouth, Every 6 hours, PRN Pain , Severe, # 80 tablet, 0 Refills, Maintenance, 06/12/2013:24:00 EDT, [facility], Partial fill upon patient request, 2 tablet By Mouth Every 6 hours,PRN:Pain , Severe, 157.48, cm, 06/12/20... Start Date: 06/12/20 Status: Ordered acetaminophen-oxyCODONE 325 mg-5 mg oral tablet 1, tablet, By Mouth, Every 4 hours, PRN, # 30 tablet, Refills 0, Tot. Refills 0, Maintenance, for pain, 06/29/20 14:32:00 EDT, [facility], Partial fill upon patient [...] 07/13/20 12:00:00 EDT, Route to Pharmacy Electronically, [facility]278,157.48, cm, 07/12/20 15:39:00 EDT, Height, 64, kg,... Start Date: 07/13/20 Status: Ordered tiZANidine 4 mg oral tablet 4 mg, 1, tablet, By Mouth, 3 times a day, # 90 tablet, Refills 0, Tot. Refills 0, Maintenance, 06/12/20 12:54:00 EDT, Route to Pharmacy Electronically, [facility], 157.48, cm, 06/12/20 8:26:00 EDT, Height, 64, kg, 06/11/20 7:18:00 EDT, Dry... Start Date: 06/12/20 Status: Ordered traZODone 50 mg oral tablet 50 mg, 1, tablet, By Mouth, Daily at bedtime, PRN, as needed Start Date: 06/11/20 Status: Ordered
--- OUTSIDE RECORDS SUMMARY | 2023-05-01 11:30 | XMS_ITS | Continuity of Care Document ---
Author Name Unknown Organization [facility] Address [address] [place] [address], [address] [place] [address]- Care Team Providers Care Payroll Officer Name Role Phone Kristin Jaramillo MD Primary Care Physician [phone] [facility] [place] Date(s): 08/06/20 - 09/05/20 [facility] [address] [place] [address], [address] [place], [place] [address] Allergies, Adverse Reactions, Alerts Substance Reaction Severity Status OxyCONTIN passed out,vomiting Active Medications acetaminophen-HYDROcodone 325 mg-5 mg oral tablet 2 tablet, By Mouth, Every 6 hours, PRN Pain , Severe, # 80 tablet, 0 Refills, Maintenance, 06/12/2013:24:00 EDT, Tablet, [facility], Partial fill upon patient request, 2 tablet By Mouth Every 6 hours,PRN:Pain , Severe, 157.48, cm, 06/12/20... Start Date: 06/12/20 Status: Ordered acetaminophen-oxyCODONE 325 mg-5 mg oral tablet 1, tablet, By Mouth, Every 4 hours, PRN, # 30 tablet, Refills 0, Tot. Refills 0, Maintenance, for pain, 06/29/20 14:32:00 EDT, Route to Pharmacy Electronically, [facility]278 Tablet, Partial fill upon patient [...] 07/13/20 12:00:00 EDT, Route to Pharmacy Electronically, [facility],157.48, cm, 07/12/20 15:39:00 EDT, Height, 64, kg,... Start Date: 07/13/20 Status: Ordered tiZANidine 4 mg oral tablet 4 mg, 1, tablet, By Mouth, 3 times a day, # 90 tablet, Refills 0, Tot. Refills 0, Maintenance, 06/12/20 12:54:00 EDT, Route to Pharmacy Electronically, [facility], 157.48, cm, 06/12/20 8:26:00 EDT, Height, 64, kg, 06/11/20 7:18:00 EDT, Dry... Start Date: 06/12/20 Status: Ordered traZODone 50 mg oral tablet 50 mg, 1, tablet, By Mouth, Daily at bedtime, PRN, as needed Start Date: 06/11/20 Status: Ordered
--- OUTSIDE RECORDS SUMMARY | 2023-05-01 11:30 | XMS_ITS | Continuity of Care Document ---
Author Name Unknown Organization [facility] Address [address] [place] [address], [address] [place] [address]- Care Team Providers Care Rag Cutting Machine Operator Name Role Phone Kristin Jaramillo MD Primary Care Physician [place] [facility] [place]s): 06/11/20 - 07/11/20 [facility] [address] [place] [address], [address] [place] [address]- [facility] Allergies, Adverse Reactions, Alerts Substance Reaction Severity Status OxyCONTIN passed out,vomiting Active Medications acetaminophen-HYDROcodone 325 mg-5 mg oral tablet 2 tablet, By Mouth, Every 6 hours, PRN Pain , Severe, # 80 tablet, 0 Refills, Maintenance, 06/12/2013:24:00 EDT, Tablet, [facility], Partial fill upon patient request, 2 tablet By Mouth Every 6 hours,PRN:Pain , Severe, 157.48, cm, 06/12/20... Start Date: 06/12/20 Status: Ordered acetaminophen-oxyCODONE 325 mg-5 mg oral tablet 1, tablet, By Mouth, Every 4 hours, PRN, # 30 tablet, Refills 0, Tot. Refills 0, Maintenance, for pain, 06/29/20 14:32:00 EDT, Route to Pharmacy Electronically, [facility]278 Tablet, Partial fill upon [...] 06/12/20 12:54:00 EDT, Route to Pharmacy Electronically, [facility], 157.48, cm, 06/12/20 8:26:00 EDT, Height, 64, kg, 06/11/20 7:18:00 EDT, Dry... Start Date: 06/12/20 Status: Ordered traZODone 50 mg oral tablet 50 mg, 1, tablet, By Mouth, Daily at bedtime, PRN, as needed Start Date: 06/11/20 Status: Ordered
--- OUTSIDE RECORDS SUMMARY | 2023-05-01 11:30 | XMS_ITS | Continuity of Care Document ---
Author Name Unknown Organization [facility] Address [address] [place] [address], [address] [place] [address]- Care Team Providers Care Personal Care Attendant Name Role Phone Kristin Jaramillo MD Primary Care Physician Encounter [facility] [place] Date(s): 10/25/22 - 11/24/22 [facility] [address] [place] [address] Drive, [address] [place], [place] [address] Allergies, Adverse Reactions, Alerts Substance Reaction Severity Status OxyCONTIN passed out,vomiting Active Medications acetaminophen-HYDROcodone 325 mg-5 mg oral tablet 2 tablet, By Mouth, Every 6 hours, PRN Pain , Severe, # 80 tablet, 0 Refills, Maintenance, 06/12/2013:24:00 EDT, Tablet, [facility], Partial fill upon patient request, 2 tablet By Mouth Every 6 hours,PRN:Pain , Severe, 157.48, cm, 06/12/20... Start Date: 06/12/20 Status: Ordered acetaminophen-oxyCODONE 325 mg-5 mg oral tablet 1, tablet, By Mouth, Every 4 hours, PRN, # 30 tablet, Refills 0, Tot. Refills 0, Maintenance, for pain, 06/29/20 14:32:00 EDT, Route to Pharmacy Electronically, [facility] Tablet, Partial fill upon patient request, 157.48, cm, 06/12/20 8:26... Start Date: 06/29/20 Status: Ordered Amlodipine By Mouth, Daily, 0 Refills, Maintenance, 10/30/22 15:00:00 EST, Partial fill upon patient request if the prescription is for a schedule II opioid drug. Start Date: 10/30/22 Status: Ordered carvedilol 3.125 mg oral tablet 3.125 mg, 1, tablet, By Mouth, 2 times a day, Maintenance, 06/11/20 18:02:00 EDT Start Date: 06/11/20 Status: Ordered Centrum Silver Women's 1 tablet, By Mouth, Daily in AM, Maintenance, 06/08/20 9:52:00 EDT Start Date: 06/08/20 Status: Ordered Gabapentin By Mouth, 0 Refills, Maintenance, 10/30/22 15:00:00 EST, Partial fill upon patient request if the prescription is for a schedule II opioid drug. Start Date: 10/30/22 Status: Ordered metoprolol 25 mg oral tablet 25 mg, 1, tablet, By Mouth, 2 times a day, Refills 0, Maintenance, 10/30/22 15:00:00 EST, Partial fill upon patient request if the prescription is for a schedule II opioid drug. Start Date: 10/30/22 Status: Ordered omeprazole 20 mg oral enteric coated capsule 1 capsule = 20 mg, By Mouth, Daily, Maintenance, 06/11/20 18:02:00 EDT, EC Capsule Start Date: 06/11/20 Status: Ordered tiZANidine 4 mg oral tablet 4 mg, 1, tablet, By Mouth, Daily at bedtime, PRN for muscle spasm, # 30 tablet, Refills 0, Tot. Refills 0, Maintenance, 07/13/20 12:00:00 EDT, Route to Pharmacy Electronically, [facility],157.48, cm, 07/12/20 15:39:00 EDT, Height, 64, kg,... Start Date: 07/13/20 Status: Ordered tiZANidine 4 mg oral tablet 4 mg, 1, tablet, By Mouth, 3 times a day, # 90 tablet, Refills 0, Tot. Refills 0, Maintenance, 06/12/20 12:54:00 EDT, Route to Pharmacy Electronically, [facility], 157.48, cm, 06/12/20 8:26:00 EDT, Height, 64, kg, 06/11/20 7:18:00 EDT, Dry... Start Date: 06/12/20 Status: Ordered traZODone 50 mg oral tablet 50 mg, 1, tablet, By Mouth, Daily at bedtime, PRN, as needed Start Date: 06/11/20 Status: Ordered Patient Care team information Care Team Personnel Name: Kristin Jaramillo MD Position: [facility] Physician (General Medicine) Member Role: PCP Address: Address: [address] [place] [address]- Name: Judith Larry RN Position: [facility] RN Member Role: Primary Care Nurse Care Team Related Persons Name: ALYSSADOUGLAS BONILLA Address: [address] [address]
--- OUTSIDE RECORDS SUMMARY | 2023-05-01 11:30 | XMS_ITS | Continuity of Care Document ---
Author Name Unknown Organization [facility] Address [address] [place] [address], [address] [place] [address]- Care Team Providers Care Arc Welder Name Role Phone Kristin Jaramillo MD Primary Care Physician [phone] [place] [facility] [place] 11/29/22 [facility] [address] [place] [address] Drive, [address] [place], [place] [address] Attending Physician: Admtr, Ar8 Admitting Physician: Admtr, Ar8 Referring Physician: Admtr, Ar8 Allergies, Adverse Reactions, Alerts Substance Reaction Severity [...] as needed Start Date: 06/11/20 Status: Ordered Note * Event Display: MRI Spine, Non- Authored Date: * Event Display: MRI Spine, Non- BH Authored Date: [id number] Patient Care team information Care Team Personnel Name: Kristin Jaramillo MD Position: [facility] Physician (General Medicine) Member Role: PCP Address: Address: [address] [place] [address]- Name: Judith Larry RN Position: [facility] RN Member Role: Primary Care Nurse Care Team Related Persons Name: DOUGLAS WILCOX Address: [address] [address]
--- OUTSIDE RECORDS SUMMARY | 2023-05-01 11:31 | XMS_ITS | Continuity of Care Document ---
Author Name Unknown Organization [facility] ter Address [address] [place] [address]- Care Team Providers Care Automatic Vulcanizing Operator Name Role Phone Kristin Jaramillo MD Primary Care Physician [phone] [id number] Date(s): 05/03/20 - 06/11/[address] [address]- [facility] Attending Physician: Tha Schulz MD Admitting Physician: Tha Schulz MD Allergies, Adverse Reactions, Alerts Substance Reaction Severity Status OxyCONTIN passed out,vomiting Active Medications carvedilol 3.125 mg oral tablet 3.125 mg, [...] EC Capsule Start Date: 06/11/20 Status: Ordered traMADol 50 mg oral tablet 1 tablet = 50 mg, By Mouth, 4 times a day, PRN as needed Start Date: 06/11/20 Status: Ordered traZODone 50 mg oral tablet 50 mg, 1, tablet, By Mouth, Daily at bedtime, PRN, as needed Start Date: 06/11/20 Status: Ordered
--- OUTSIDE RECORDS SUMMARY | 2023-05-01 11:31 | XMS_ITS | Continuity of Care Document ---
Author Name Unknown Organization [facility] Address [address] [place] [address], [address] [place] [address]- Care Team Providers Care Veterinary Meat Inspector Name Role Phone Kristin Jaramillo MD Primary Care Physician Encounter [facility] Date(s): 03/30/20 - 04/29/20 [facility] [address] [place] [address], [address] [place] [address]- [facility] Allergies, Adverse Reactions, Alerts Substance Reaction Severity Status NKA Active Medications Advil By Mouth, 0, 0, 03/10/05 1:22:52, Constant Indicator Start Date: 03/10/05 Status: Ordered
--- OUTSIDE RECORDS SUMMARY | 2023-05-01 11:31 | XMS_ITS | Continuity of Care Document ---
Author Name Unknown Organization [facility] Address [address] [place] [address] [address], [address] [place] [address]- Care Team Providers Care Technician Plant And Maintenance Name Role Phone Kristin Jaramillo MD Primary Care Physician Encounter [facility] [place] Date(s): 01/12/22 - 02/23/22 [facility] [address] [place] [address] Drive, [address] [place], [place] [address] Attending Physician: Not on Staff, Attending MD Allergies, Adverse Reactions, Alerts Substance Reaction Severity Status OxyCONTIN passed out,vomiting Active Medications acetaminophen-HYDROcodone 325 mg-5 mg oral tablet 2 tablet, By Mouth, Every 6 hours, PRN Pain , Severe, # 80 tablet, 0 Refills, Maintenance, 06/12/2013:24:00 EDT, Tablet, [facility], Partial fill upon patient request, 2 tablet By Mouth Every 6 hours,PRN:Pain , Severe, 157.48, cm, 06/12/20... Start Date: 06/12/20 Status: Ordered acetaminophen-oxyCODONE 325 mg-5 mg oral tablet 1, tablet, By Mouth, Every 4 hours, PRN, # 30 tablet, Refills 0, Tot. Refills 0, Maintenance, for pain, 06/29/20 14:32:00 EDT, Route to Pharmacy Electronically, [facility] Tablet, Partial fill upon patient [...] 07/13/20 12:00:00 EDT, Route to Pharmacy Electronically, [facility],157.48, cm, 07/12/20 15:39:00 EDT, Height, 64, kg,... Start Date: 07/13/20 Status: Ordered tiZANidine 4 mg oral tablet 4 mg, 1, tablet, By Mouth, 3 times a day, # 90 tablet, Refills 0, Tot. Refills 0, Maintenance, 06/12/20 12:54:00 EDT, Route to Pharmacy Electronically, [facility], 157.48, cm, 06/12/20 8:26:00 EDT, Height, 64, kg, 06/11/20 7:18:00 EDT, Dry... Start Date: 06/12/20 Status: Ordered traZODone 50 mg oral tablet 50 mg, 1, tablet, By Mouth, Daily at bedtime, PRN, as needed Start Date: 06/11/20 Status: Ordered
--- OUTSIDE RECORDS SUMMARY | 2023-05-01 11:31 | XMS_ITS | Continuity of Care Document ---
Author Name Unknown Organization [facility] Address [address] [place] [address], [address] [place] [address]- Care Team Providers Care Carbon Capture Power Plant Operator Name Role Phone Kristin Jaramillo MD Primary Care Physician [phone] Encounter [facility] Date(s): 03/29/20 - 04/28/20 [facility] [address] [place] [address], [address] [place] [address]- [facility] Allergies, Adverse Reactions, Alerts Substance Reaction Severity Status NKA Active Medications Advil By Mouth, 0, 0, 03/10/05 1:22:52, Constant Indicator Start Date: 03/10/05 Status: Ordered
--- OUTSIDE RECORDS SUMMARY | 2023-05-01 11:31 | XMS_ITS | Continuity of Care Document ---
Author Name Unknown Organization [facility] Address [address] [place] [address], [address] [place] [address]- Care Team Providers Care Portfolio Director Name Role Phone Kristin Jaramillo MD Primary Care Physician En[place] [facility] [place] Date(s): 06/14/20 - 07/14/20 [facility] [address] [place] [address], [address] [place] [address]- [facility] Allergies, Adverse Reactions, Alerts Substance Reaction Severity Status OxyCONTIN passed out,vomiting Active Medications acetaminophen-HYDROcodone 325 mg-5 mg oral tablet 2 tablet, By Mouth, Every 6 hours, PRN Pain , Severe, # 80 tablet, 0 Refills, Maintenance, 06/12/2013:24:00 EDT, Tablet, [facility], Partial fill upon patient request, 2 tablet By Mouth Every 6 hours,PRN:Pain , Severe, 157.48, cm, 06/12/20... Start Date: 06/12/20 Status: Ordered acetaminophen-oxyCODONE 325 mg-5 mg oral tablet 1, tablet, By Mouth, Every 4 hours, PRN, # 30 tablet, Refills 0, Tot. Refills 0, Maintenance, for pain, 06/29/20 14:32:00 EDT, Route to Pharmacy Electronically, [facility] Tablet, Partial fill upon patient [...] 07/13/20 12:00:00 EDT, Route to Pharmacy Electronically, [facility],157.48, cm, 07/12/20 15:39:00 EDT, Height, 64, kg,... Start Date: 07/13/20 Status: Ordered tiZANidine 4 mg oral tablet 4 mg, 1, tablet, By Mouth, 3 times a day, # 90 tablet, Refills 0, Tot. Refills 0, Maintenance, 06/12/20 12:54:00 EDT, Route to Pharmacy Electronically, [facility], 157.48, cm, 06/12/20 8:26:00 EDT, Height, 64, kg, 06/11/20 7:18:00 EDT, Dry... Start Date: 06/12/20 Status: Ordered traZODone 50 mg oral tablet 50 mg, 1, tablet, By Mouth, Daily at bedtime, PRN, as needed Start Date: 06/11/20 Status: Ordered
--- OUTSIDE RECORDS SUMMARY | 2023-05-01 11:31 | XMS_ITS | Continuity of Care Document ---
Author Name Unknown Organization [facility] Address [address] [place] [address], [address] [place] [address]- Care Team Providers Care Rivet Catcher Name Role Phone Kristin Jaramillo MD Primary Care Physician [phone] Encounter [facility] [place] Date(s): 07/13/20 - 07/20/20 [facility] Neuro[facility] [address] [place] [address], [address] [place] [address]- [facility] Attending Physician: Raphael Segura MD Referring Physician: Kristin Jaramillo MD Allergies, Adverse Reactions, Alerts Substance Reaction Severity Status OxyCONTIN passed out,vomiting Active Medications acetaminophen-HYDROcodone 325 mg-5 mg oral tablet 2 tablet, By Mouth, Every 6 hours, PRN Pain , Severe, # 80 tablet, 0 Refills, Maintenance, 06/12/2013:24:00 EDT, Tablet, [facility], Partial fill upon patient request, 2 tablet By Mouth Every 6 hours,PRN:Pain , Severe, 157.48, cm, 06/12/20... Start Date: 06/12/20 Status: Ordered acetaminophen-oxyCODONE 325 mg-5 mg oral tablet 1, tablet, By Mouth, Every 4 hours, PRN, # 30 tablet, Refills 0, Tot. Refills 0, Maintenance, for pain, 06/29/20 14:32:00 EDT, Route to Pharmacy Electronically, [facility] 5278 Tablet, Partial fill upon [...] 07/13/20 12:00:00 EDT, Route to Pharmacy Electronically, [facility],157.48, cm, 07/12/20 15:39:00 EDT, Height, 64, kg,... Start Date: 07/13/20 Status: Ordered tiZANidine 4 mg oral tablet 4 mg, 1, tablet, By Mouth, 3 times a day, # 90 tablet, Refills 0, Tot. Refills 0, Maintenance, 06/12/20 12:54:00 EDT, Route to Pharmacy Electronically, [facility], 157.48, cm, 06/12/20 8:26:00 EDT, Height, 64, kg, 06/11/20 7:18:00 EDT, Dry... Start Date: 06/12/20 Status: Ordered traZODone 50 mg oral tablet 50 mg, 1, tablet, By Mouth, Daily at bedtime, PRN, as needed Start Date: 06/11/20 Status: Ordered Vital Signs Most recent to oldest [Reference Range]: 1 Height 157.48 cm (07/12/20 3:39 PM) Weight 61.38 kg (07/12/20 3:39 PM) Body Mass Index [18.5-24.99] 24.75 (07/12/20 3:39 PM)
--- OUTSIDE RECORDS SUMMARY | 2023-05-01 11:31 | XMS_ITS | Continuity of Care Document ---
Author Name Unknown Organization [facility] Address [address] [place] [address], [address] [place] [address]- Care Team Providers Care Spikemaking Supervisor Name Role Phone Kristin Jaramillo MD Primary Care Physician Encounter [facility] [place] Date(s): 06/24/20 - 07/24/20 [facility] [address] [place] [address], [address] [place], [place] [address] Allergies, Adverse Reactions, Alerts Substance Reaction Severity Status OxyCONTIN passed out,vomiting Active Medications acetaminophen-HYDROcodone 325 mg-5 mg oral tablet 2 tablet, By Mouth, Every 6 hours, PRN Pain , Severe, # 80 tablet, 0 Refills, Maintenance, 06/12/2013:24:00 EDT, Tablet, [facility], Partial fill upon patient request, 2 tablet By Mouth Every 6 hours,PRN:Pain , Severe, 157.48, cm, 06/12/20... Start Date: 06/12/20 Status: Ordered acetaminophen-oxyCODONE 325 mg-5 mg oral tablet 1, tablet, By Mouth, Every 4 hours, PRN, # 30 tablet, Refills 0, Tot. Refills 0, Maintenance, for pain, 06/29/20 14:32:00 EDT, Route to Pharmacy Electronically, [facility]278 Tablet, Partial fill upon [...] 07/13/20 12:00:00 EDT, Route to Pharmacy Electronically, [facility],157.48, cm, 07/12/20 15:39:00 EDT, Height, 64, kg,... Start Date: 07/13/20 Status: Ordered tiZANidine 4 mg oral tablet 4 mg, 1, tablet, By Mouth, 3 times a day, # 90 tablet, Refills 0, Tot. Refills 0, Maintenance, 06/12/20 12:54:00 EDT, Route to Pharmacy Electronically, [facility], 157.48, cm, 06/12/20 8:26:00 EDT, Height, 64, kg, 06/11/20 7:18:00 EDT, Dry... Start Date: 06/12/20 Status: Ordered traZODone 50 mg oral tablet 50 mg, 1, tablet, By Mouth, Daily at bedtime, PRN, as needed Start Date: 06/11/20 Status: Ordered
--- OUTSIDE RECORDS SUMMARY | 2023-05-01 11:31 | XMS_ITS | Continuity of Care Document ---
Author Name Unknown Organization [facility] Address [address] [place] [address], [address] [place] [address]- Care Team Providers Care Forest Botany Instructor Name Role Phone Kristin Jaramillo MD Primary Care Physician [phone] [place] [facility] [place](s): 04/05/20 - 05/05/20 [facility] Neurosurgery [address] [place] [address], [address] [place] [address]- [facility] Allergies, Adverse Reactions, Alerts Substance [...]
--- OUTSIDE RECORDS SUMMARY | 2023-05-01 11:31 | XMS_ITS | Continuity of Care Document ---
Author Name Unknown Organization [facility] Address [address] [place] [address], [address] [place] [address]- Care Team Providers Care Teradata Solution Architect Name Role Phone Kristin Jaramillo MD Primary Care Physician [phone] [place] [facility] [place] 10[place]/22 - 11/29/22 [facility] [address] [place] [address], [address] [place], [place] [address] Allergies, Adverse Reactions, Alerts Substance Reaction Severity Status OxyCONTIN passed out,vomiting Active Medications acetaminophen-HYDROcodone 325 mg-5 mg oral tablet 2 tablet, By Mouth, Every 6 hours, PRN Pain , Severe, # 80 tablet, 0 Refills, Maintenance, 06/12/2013:24:00 EDT, Tablet, [facility], Partial fill upon patient request, 2 tablet By Mouth Every 6 hours,PRN:Pain , Severe, 157.48, cm, 06/12/20... Start Date: 06/12/20 Status: Ordered acetaminophen-oxyCODONE 325 mg-5 mg oral tablet 1, tablet, By Mouth, Every 4 hours, PRN, # 30 tablet, Refills 0, Tot. Refills 0, Maintenance, for pain, 06/29/20 14:32:00 EDT, Route to Pharmacy Electronically, [facility] 5278 Tablet, Partial fill upon [...] 07/13/20 12:00:00 EDT, Route to Pharmacy Electronically, [facility],157.48, cm, 07/12/20 15:39:00 EDT, Height, 64, kg,... Start Date: 07/13/20 Status: Ordered tiZANidine 4 mg oral tablet 4 mg, 1, tablet, By Mouth, 3 times a day, # 90 tablet, Refills 0, Tot. Refills 0, Maintenance, 06/12/20 12:54:00 EDT, Route to Pharmacy Electronically, [facility], 157.48, cm, 06/12/20 8:26:00 EDT, Height, 64, kg, 06/11/20 7:18:00 EDT, Dry... Start Date: 06/12/20 Status: Ordered traZODone 50 mg oral tablet 50 mg, 1, tablet, By Mouth, Daily at bedtime, PRN, as needed Start Date: 06/11/20 Status: Ordered Patient Care team information Care Team Personnel Name: Kristin Jaramillo MD Position: [facility] Physician (General Medicine) Member Role: PCP Address: Address: [address] [place] [address]- Name: Judith Larry RN Position: [facility] RN Member Role: Primary Care Nurse Care Team Related Persons Name: ALYSSADOUGLAS BONILLA Address: [address] [address]
--- OUTSIDE RECORDS SUMMARY | 2023-05-01 11:31 | XMS_ITS | Continuity of Care Document ---
Author Name Unknown Organization [facility] Address [address] [place] [address]- Care Team Providers Care Finisher Special Stocks Name Role Phone Kristin Jaramillo MD Primary Care Physician Encounter [facility] [place] Date(s): 06/11/20 - 06/12/[address] [address]- [facility] Discharge Disposition: A-Transfer VNA/Home Health Attending Physician: Raphael Segura MD Admitting Physician: Raphael Segura MD Referring Physician: Raphael Segura MD Allergies, Adverse Reactions, Alerts Substance Reaction Severity Status OxyCONTIN passed out,vomiting Active Medications acetaminophen-HYDROcodone 325 mg-5 mg oral tablet 2 tablet, By Mouth, Every 6 hours, PRN Pain , Severe, # 80 tablet, 0 Refills, Maintenance, 06/12/2013:24:00 EDT, Tablet, [facility], Partial fill upon patient request, 2 tablet By Mouth Every 6 hours,PRN:Pain , Severe, 157.48, cm, 06/12/20... Start Date: 06/12/20 Status: Ordered carvedilol 3.125 mg oral tablet [...] 06/12/20 12:54:00 EDT, Route to Pharmacy Electronically, [facility], 157.48, cm, 06/12/20 8:26:00 EDT, Height, 64, kg, 06/11/20 7:18:00 EDT, Dry... Start Date: 06/12/20 Status: Ordered traZODone 50 mg oral tablet 50 mg, 1, tablet, By Mouth, Daily at bedtime, PRN, as needed Start Date: 06/11/20 Status: Ordered Results Radiology Reports * Exam Date Time Procedure Performing Provider Status 06/11/20 9:30 AM C-Arm > 1 Hour Chinyere Carney; Auth (Verified) Notes: (C-Arm > 1 Hour) Reason For Exam: spondylolithesis, L4-L5 decompression TLIF RESULT: C-Arm > 1 Hour Lumbar Spine 2 or 3 Views, C-Arm > 1 Hour INDICATION: spondylolisesis, L4-5 decompression TLIF; Special Instructions: FT 51.8sec TT 1hr 15mimn COMPARISONS: 05/11/2020 TECHNIQUE: Fluoroscopy support was provided. There was no radiologist in attendance. Fluoroscopy time: 51.8 seconds Technologist time: 1 hour 15 minutes Exposure: 23.28 mGy FINDINGS: 5 images were submitted showing TLIF at what appears to be L4-L5. Please refer to operative note for full details. IMPRESSION: See above. WSN: [id number] Ordering Physician: Raphael Segura Dictated By: Alfredo Almonte MD Dictated Date/Time: 06/11/20 10:52 a Reviewed By: Alfredo Almonte MD Signed By: Alfredo Almonte MD Signed Date/Time: 06/11/20 10:52 am Transcribed By: JJ Transcribed Date/Time: 06/11/20 10:51 am * Exam Date Time Procedure Performing Provider Status 06/11/20 9:30 AM Lumbar Spine 2 or 3 Views Chinyere Carney; Auth (Verified) Notes: (Lumbar Spine 2 or 3 Views) Reason For Exam: spondylolisesis, L4-5 decompression TLIF RESULT: Lumbar Spine 2 or 3 Views Lumbar Spine 2 or 3 Views, C-Arm > 1 Hour INDICATION: spondylolisesis, L4-5 decompression TLIF; Special Instructions: FT 51.8sec TT 1hr 15mimn COMPARISONS: 05/11/2020 TECHNIQUE: Fluoroscopy support was provided. There was no radiologist in attendance. Fluoroscopy time: 51.8 seconds Technologist time: 1 hour 15 minutes Exposure: 23.28 mGy FINDINGS: 5 images were submitted showing TLIF at what appears to be L4-L5. Please refer to operative note for full details. IMPRESSION: See above. WSN: [id number] Ordering Physician: Raphael Segura Dictated By: Alfredo Almonte MD Dictated Date/Time: 06/11/20 10:52 a Reviewed By: Alfredo Almonte MD Signed By: Alfredo Almonte MD Signed Date/Time: 06/11/20 10:52 am Transcribed By: JJ Transcribed Date/Time: 06/11/20 10:51 am Vital Signs Most recent to oldest [Reference Range]: 1 2 3 Height 157.48 cm (06/12/20 8:26 AM) 157.48 cm (06/11/20 2:29 PM) 157.48 cm (06/11/20 6:49 AM) Weight 63.18 kg (06/11/20 6:49 AM) 63.18 kg (06/08/20 10:08 AM) Oxygen Saturation [94-100 %] 97 % (06/12/20 8:26 AM) 99 % (06/12/20 5:00 AM) 97 % (06/11/20 11:00 PM) Pulse Rate [55-90 bpm] 77 bpm (06/12/20 8:51 AM) 77 bpm (06/12/20 8:26 AM) 79 bpm (06/12/20 5:00 AM) Body Mass Index [18.5-24.99] 25.48 *H* (06/11/20 6:49 AM) 25.48 *H* (06/08/20 10:08 AM) Blood Pressure [90-138/55-84 mm Hg] 149/70mm Hg *H* (06/12/20 8:51 AM) 149/70mm Hg *H* (06/12/20 8:26 AM) 120/62mm Hg (06/12/20 5:00 AM) Respiratory Rate [16-30 br/min] 18 br/min (06/12/20 9:51 AM) 18 br/min (06/12/20 8:51 AM) 18 br/min (06/12/20 8:26 AM) Temperature [96.8-100.4 DegF] 98.8 DegF (06/12/20 8:26 AM) 98.3 DegF (06/12/20 5:00 AM) 98.6 DegF (06/11/20 11:00 PM) Liters per Minute 2 L/min (06/11/20 1:30 PM) 2 L/min (06/11/20 12:00 PM) 2 L/min (06/11/20 11:45 AM) Mode of Delivery (Oxygen) Room air (06/12/20 8:26 AM) Room air (06/12/20 5:00 AM) Room air (06/11/20 11:00 PM) Blood pressure sites Arm, right (06/12/20 8:26 AM) Arm, right (06/12/20 5:00 AM) Arm, right (06/11/20 11:00 PM) Temperature Route Oral (06/12/20 8:26 AM) Oral (06/12/20 5:00 AM) Oral (06/11/20 11:00 PM) Dry Weight 64 kg (06/11/20 6:49 AM) 63.18 kg (06/08/20 10:08 AM) Weight Obtained Via Patient/family state d (06/08/20 10:08 AM) Dry Weight Obtained Via Standing scale (06/11/20 6:49 AM) Patient/family stated (06/08/20 10:08 AM)
--- OUTSIDE RECORDS SUMMARY | 2023-05-01 11:31 | XMS_ITS | Continuity of Care Document ---
Author Name Unknown Organization [facility] Address [address] [place] [address], [address] [place] [address]- Care Team Providers Care Bond Trader Name Role Phone Kristin Jaramillo MD Primary Care Physician [phone] [place] [facility] [place] 06/24/20 [facility] [address] [place] [address], [address] [place] [address]- [facility] Allergies, Adverse Reactions, Alerts Substance Reaction Severity Status OxyCONTIN passed out,vomiting Active Medications acetaminophen-HYDROcodone 325 mg-5 mg oral tablet 2 tablet, By Mouth, Every 6 hours, PRN Pain , Severe, # 80 tablet, 0 Refills, Maintenance, 06/12/2013:24:00 EDT, Tablet, [facility], Partial fill upon patient [...] 06/12/20 12:54:00 EDT, Route to Pharmacy Electronically, [facility], 157.48, cm, 06/12/20 8:26:00 EDT, Height, 64, kg, 06/11/20 7:18:00 EDT, Dry... Start Date: 06/12/20 Status: Ordered traZODone 50 mg oral tablet 50 mg, 1, tablet, By Mouth, Daily at bedtime, PRN, as needed Start Date: 06/11/20 Status: Ordered
--- OUTSIDE RECORDS SUMMARY | 2023-05-01 11:31 | XMS_ITS | Continuity of Care Document ---
Author Name Unknown Organization [facility] Address [address] [place] [address]- Care Team Providers Care Sausage Tier Name Role Phone Kristin Jaramillo MD Primary Care Physician Encounter 06/14/20 - 07/08/20 [facility] [place] [address] [place] [address]- [facility] Discharge Disposition: [facility] Allergies, Adverse Reactions, Alerts Substance Reaction Severity Status OxyCONTIN passed out,vomiting Active Medications acetaminophen-HYDROcodone 325 mg-5 mg oral tablet 2 tablet, By Mouth, Every 6 hours, PRN Pain , Severe, # 80 tablet, 0 Refills, Maintenance, 06/12/2013:24:00 EDT, Tablet, [facility], Partial fill upon patient request, 2 tablet By Mouth Every 6 hours,PRN:Pain , Severe, 157.48, cm, 06/12/20... Start Date: 06/12/20 Status: Ordered acetaminophen-oxyCODONE 325 mg-5 mg oral tablet 1, tablet, By Mouth, Every 4 hours, PRN, # 30 tablet, Refills 0, Tot. Refills 0, Maintenance, for pain, 06/29/20 14:32:00 EDT, Route to Pharmacy Electronically, [facility]278 Tablet, Partial fill upon patient [...] 06/12/20 12:54:00 EDT, Route to Pharmacy Electronically, [facility], 157.48, cm, 06/12/20 8:26:00 EDT, Height, 64, kg, 06/11/20 7:18:00 EDT, Dry... Start Date: 06/12/20 Status: Ordered traZODone 50 mg oral tablet 50 mg, 1, tablet, By Mouth, Daily at bedtime, PRN, as needed Start Date: 06/11/20 Status: Ordered
--- OUTSIDE RECORDS SUMMARY | 2023-05-01 11:31 | XMS_ITS | Continuity of Care Document ---
Author Name Unknown Organization [facility] Address [address] [place] [address], [address] [place] [address]- Care Team Providers Care Surface Water Technician Name Role Phone Kristin Jaramillo MD Primary Care Physician [phone] Encounter [facility] [place] Date(s): 03/12/20 - 05/08/20 [facility] [address] [place] [address], [address] [place] [address]- [facility] Attending Physician: Raphael Segura MD Referring Physician: Not on Staff, Referring [...]
--- OUTSIDE RECORDS SUMMARY | 2023-05-01 11:31 | XMS_ITS | Continuity of Care Document ---
Author Name Unknown Organization [facility] Address [address] [place] [address], [address] [place] [address]- Care Team Providers Care Physician Allergist Immunologist Name Role Phone Kristin Jaramillo MD Primary Care Physician [phone] [place] [facility] [place](s): 05/12/20 - 06/11/20 [facility] [address] [place] [address], [address] [place] [address]- [facility] Allergies, Adverse Reactions, Alerts Substance Reaction Severity [...]
--- OUTSIDE RECORDS SUMMARY | 2023-05-01 11:31 | XMS_ITS | Continuity of Care Document ---
Author Name Unknown Organization [facility] Address [address] [place] [address], [address] [place] [address]- Care Team Providers Care Senior Data Developer Name Role Phone Kristin Jaramillo MD Primary Care Physician Encounter [facility] [place] Date(s): 10/30/22 - 11/06/22 [facility] [address] [place] [address], [address] [place], [place] [address] Attending Physician: Raphael Segura MD Allergies, Adverse Reactions, Alerts Substance Reaction Severity Status OxyCONTIN passed out,vomiting Active Medications acetaminophen-HYDROcodone 325 mg-5 mg oral tablet 2 tablet, By Mouth, Every 6 hours, PRN Pain , Severe, # 80 tablet, 0 Refills, Maintenance, 06/12/2013:24:00 EDT, Tablet, [facility], Partial fill upon patient request, 2 tablet By Mouth Every 6 hours,PRN:Pain , Severe, 157.48, cm, 06/12/20... Start Date: 06/12/20 Status: Ordered acetaminophen-oxyCODONE 325 mg-5 mg oral tablet 1, tablet, By Mouth, Every 4 hours, PRN, # 30 tablet, Refills 0, Tot. Refills 0, Maintenance, for pain, 06/29/20 14:32:00 EDT, Route to Pharmacy Electronically, [facility] 5278 Tablet, Partial fill upon [...] 07/13/20 12:00:00 EDT, Route to Pharmacy Electronically, [facility]278,157.48, cm, 07/12/20 15:39:00 EDT, Height, 64, kg,... Start Date: 07/13/20 Status: Ordered tiZANidine 4 mg oral tablet 4 mg, 1, tablet, By Mouth, 3 times a day, # 90 tablet, Refills 0, Tot. Refills 0, Maintenance, 06/12/20 12:54:00 EDT, Route to Pharmacy Electronically, [facility], 157.48, cm, 06/12/20 8:26:00 EDT, Height, 64, kg, 06/11/20 7:18:00 EDT, Dry... Start Date: 06/12/20 Status: Ordered traZODone 50 mg oral tablet 50 mg, 1, tablet, By Mouth, Daily at bedtime, PRN, as needed Start Date: 06/11/20 Status: Ordered Vital Signs Most recent to oldest [Reference Range]: 1 Height 157.48 cm (10/30/22 2:57 PM) Weight 63.5 kg (10/30/22 2:57 PM) Body Mass Index [18.5-24.99 kg/m2] 25.6 kg/m2 *H* (10/30/22 2:57 PM) Patient Care team information Care Team Personnel Name: Kristin Jaramillo MD Position: [facility] Physician (General Medicine) Member Role: PCP Address: Address: [address] [place], [place] [address] Name: Judith Larry RN Position: [facility] RN Member Role: Primary Care Nurse Care Team Related Persons Name: DOUGLAS WILCOX Address: [address] [address]
--- NOTE | 2023-05-01 11:57 | AM.OFFWIN_ITS ---
Intake Vital Signs 05/01/23 11:59 Height 5 ft Weight 134 lb 8 oz BMI 26.3 BP 124/64 Blood Pressure Location Rt brachial Position Sitting Pulse 55 Pulse Source Pulse Oximeter Temp 97.2 F Temp Source Temporal Artery Scan Pulse Oximetry (%) 97 Oxygen Delivery Method Room Air Intake Visit Reasons: EP, fall from bed, multiple body part pain Patient Tobacco Use Status: Never used Tobacco Allergies oxycodone [From OXYCONTIN] Allergy (Intermediate, Verified 05/01/23 11:59) NAUSEA & VOMITING, hallucinations, vomiting OxyContin Adverse Reaction (Unknown, Uncoded 05/01/23 11:59) pass out HPI EP, fall from bed, multiple body part pain HPI Details Patient presents today with her for injuries sustained from falling out of her bed three days ago. She reports falling out of her bed while dreaming, onto her knees. She suffered skin tears to both knees when landing. These are starting to scab over, however she has now developed pain and redness surrounding the skin tears. Denies any fever or chills. She has been putting Neosporin on. [facility] Medical History Brain aneurysm Diverticulosis No known health problems Social History Alcohol intake: never Patient Tobacco Use Status: Never used Tobacco Review of Systems Const All systems reviewed & are unremarkable except as noted in HPI and below Physical Exam Vital Signs: Last Vital Signs Temp 97.2 F 05/01/23 11:59 Pulse 55 05/01/23 11:59 BP 124/64 05/01/23 11:59 Pulse Ox 97 05/01/23 11:59 Oxygen Delivery Method Room Air 05/01/23 11:59 BMI result Body Mass Index 26.3 Const General: cooperative and no acute distress Resp Effort & Inspection: normal respiratory effort and able to speak in complete sentences Auscultation: clear to auscultation bilaterally Cardio Jugular venous distension: no JVD Palpation: normal PMI Rate: regular rate Rhythm: regular rhythm Skin Other: Two skin tears right knee. Right tear has small open area with red granulation tissue. Skin tear on left knee has scabbed over. Skin of right knee surrounding skin tears warm and erythematous. Extrem General: Yes capillary refill normal and Yes no clubbing, cyanosis or edema Psych Appearance: grossly normal Mental Status: mental status grossly normal Speech and movement: Normal speech and movement present Assessment & Plan Assessment & Plan (1) Cellulitis of right knee: Code(s): L03.115 - Cellulitis of right lower limb Plan: Cephalexin for cellulitis. Reviewed indications, use, possible side effects.I applied xeroform dressing and wrapped right knee skin tear with open area. Advised to keep other sites clean and dry. We discussed that she does not improve with treatment, or if new symptoms develop or if skin tears open or start to develop increasing redness, drainage, pain, warmth, she should return to the for further evaluation. She agrees to plan. (2) Tear of skin of multiple sites of lower extremity: Code(s): S81.819A - Laceration without foreign body, unspecified lower leg, initial encounter Qualifiers: Encounter type: initial encounter Medications: New cephalexin 500 mg PO QID 7 days 28 caps 0RF L03.115 - Cellulitis of right lower limb Coding Level of Care Code Est Pt Level 3 (45757) Diagnoses Cellulitis of right knee L03.115 Tear of skin of multiple sites of lower extremity S81.819A Encounter type: initial encounter
[2023-05-01 11:59] VITALS: BP 124/64; PULSE 55; TEMP 36.2; O2SAT 97; BMI 26.3
== END 2023-05-01 13:08 | disposition home or self-care (01) ==
PROVIDERS: PCP Family Medicine; Visit Provider Nurse Practitioner Family
DX: L03.115 Cellulitis of right lower limb (principal); S81.819A Laceration without foreign body, unspecified lower leg, initial encounter
CPT/HCPCS: 99213

== ENCOUNTER 2023-06-13 09:43 | Outpatient (AMB) | payer MEDICARE, SELFPAY ==
--- NOTE | 2023-06-13 09:46 | AM.OFFWIN_ITS ---
Intake Vital Signs 06/13/23 09:52 Height 5 ft BP 132/58 L Blood Pressure Location Lt brachial Position Sitting Pulse 67 Pulse Source Pulse Oximeter Temp 97.8 F Temp Source Temporal Artery Scan Pulse Oximetry (%) 97 Oxygen Delivery Method Room Air Intake Visit Reasons: EST/left leg pain due to fall Patient Tobacco Use Status: Never used Tobacco Allergies oxycodone [From OXYCONTIN] Allergy (Intermediate, Verified 06/13/23 09:46) NAUSEA & VOMITING, hallucinations, vomiting OxyContin Adverse Reaction (Unknown, Uncoded 05/01/23 11:59) pass out HPI HPI Comments History of Present Illness Details The patient presents to urgent care for evaluation of left leg pain. She states that she tripped on her carpet yesterday and fell on her left side on the hardwood floor. She has been having a great deal of difficulty putting weight on the left leg. [facility] Medical History (Updated 06/13/23 @ 10:26 by Regi Julian DO) Fall Diverticulosis Brain aneurysm No known health problems Social History Alcohol intake: never Patient Tobacco Use Status: Never used Tobacco Physical Exam Vital Signs: Last Vital Signs Temp 97.8 F 06/13/23 09:52 Pulse 67 06/13/23 09:52 BP 132/58 L 06/13/23 09:52 Pulse Ox 97 06/13/23 09:52 Oxygen Delivery Method Room Air 06/13/23 09:52 Const General: healthy appearing and no acute distress Orientation/consciousness: patient oriented x3 Eyes Corneas: corneas normal Pupils: Equal, round and reactive pupils present Chest Chest palpation & inspection: no tenderness Resp Effort & Inspection: normal respiratory effort and able to speak in complete sentences GI Palpation (GI): nontender Neuro General: patient oriented x3 Cranial nerves: Yes Equal, round and reactive pupils present Extrem Other: Tender to palpation at the left hip joint and along the length of the femur. No ecchymosis. Limited range of motion of the left lower extremity Psych Appearance: grossly normal Attitude: cooperative Assessment & Plan Assessment & Plan (1) Fall: Code(s): W19.XXXA - Unspecified fall, initial encounter (2) Closed left hip fracture: Code(s): S72.002A - Fracture of unspecified part of neck of left femur, initial encounter for closed fracture Plan Hip x-ray reveals a fracture of the proximal femur at the greater trochanter around the prosthesis. The patient's care was discussed with Otis WadesLakshmi , physician's spa assistant manager. She recommends nonweightbearing x6 weeks. If patient is able to accomplish this at home with family's help and use of a walker she could potentially go home however patient may need rehab placement for this to be nonweightbearing and allow it to heal. After consulting with various family members, patient has decided to go to the emergency department for likely rehab placement. The PA at [facility] was notified and will touch base with the ED. Orders: Orders XR hip LT w PEL1V Today W19.XXXA - Unspecified fall, initial encounter Coding Level of Care Code Est Pt Level 4 (70383) Diagnoses Fall W19.XXXA Closed left hip fracture S72.002A
[2023-06-13 09:52] VITALS: BP 132/58; PULSE 67; TEMP 36.6; O2SAT 97
== END 2023-06-13 12:01 | disposition home or self-care (01) ==
PROVIDERS: PCP Family Medicine; Visit Provider Emergency Medicine
DX: S72.002A Fracture of unspecified part of neck of left femur, initial encounter for closed fracture (principal); W19.XXXA Unspecified fall, initial encounter
CPT/HCPCS: 99214

== ENCOUNTER 2023-06-13 10:30 | Outpatient (REF) | payer MEDICARE, SELFPAY ==
--- NOTE | ~2023-06-13 | XR_ITS ---
EXAMINATION: XR HIP, LEFT CLINICAL INFORMATION: Fall COMPARISON: Left hip 03/16/2021 TECHNIQUE: Two views of the left hip. FINDINGS: There is a subtle fracture involving the femur involving the region of the greater trochanter. Lyons images have been saved. No fracture fragment displacement is seen. The hip prosthesis appears unchanged without evidence of loosening or dislocation. XR/XR hip LT w PEL1V IMPRESSION: Subtle fracture involving the greater trochanter of the left femur.
== END 2023-06-13 10:31 | disposition home or self-care (01) ==
LOC: HO.HMGCX 10:30
PROVIDERS: Visit Provider Emergency Medicine
DX: Z13.89 Encounter for screening for other disorder (principal)
CPT/HCPCS: 73502

== ENCOUNTER 2023-06-13 12:11 | Emergency (ER) | payer MEDICARE, SELFPAY ==
[2023-06-13 12:35] VITALS: BP 157/70; PULSE 69; RESP 16; TEMP 36.8; O2SAT 97; BMI 25.4
--- NOTE | 2023-06-13 12:35 | ED_ITS ---
HPI - Extremity Injury (Lower) General Chief Complaint: General Medical Stated Complaint: L Side Hip Fx S/P Fall 06/12/23 Time Seen by Provider: 06/13/23 14:47 Source: patient and old records reviewed Mode of arrival: wheelchair Limitations: no limitations History of Present Illness HPI Narrative: 82-year-old female with a history of a left hip replacement in the past presents to the ER for evaluation of a fall yesterday resulting in left hip pain. She went to the [facility] and had some x-rays done. X-ray showed a subtle fracture of the greater trochanter of the left femur. Orthopedics is recommending nonweightbearing, nonsurgical case. Patient lives at home with her and there are stairs in the home. They are in need of short-term rehab placement. She reports significant pain, 9/10 in the left hip. She has been sitting in the waiting room for a few hours and this exacerbated her pain. She denies any numbness or tingling in the leg. No other injuries sustained during the fall. MD complaint: hip injury Onset (ago): day(s) (1) Injury: Left: hip Type of Injury: blunt Place: home Severity: severe Severity scale (1-10): 9 Relieving factors: immobilization and rest Exacerbating factors: weight bearing, movement and palpation Context: fall Associated symptoms: unable to bear weight Other symptoms: none Related Data Home Medications Medication Instructions Recorded Confirmed amlodipine 2.5 mg tablet 2.5 mg PO DAILY 10/05/22 06/14/23 metoprolol tartrate 25 mg tablet 25 mg PO BID 10/05/22 06/14/23 mirtazapine 7.5 mg tablet 7.5 mg PO BEDTIME 05/01/23 06/14/23 Allergies Allergy/AdvReac Type Severity Reaction Status Date / Time oxycodone [From OXYCONTIN] Allergy Intermediate NAUSEA & Verified 06/13/23 09:46 VOMITING, hallucinations, vomiting OxyContin AdvReac Unknown pass out Uncoded 05/01/23 11:59 Review of Systems 2 Review of Systems: Yes all other systems are reviewed and are negative [facility] Past Medical History Medical History (Updated 06/13/23 @ 15:57 by RODNEY Grace) Fall Diverticulosis Brain aneurysm No known health problems Social History Social History (Reviewed 05/01/23 @ 12:50 by STEVE Reyna Alcohol intake: current Alcohol intake frequency: holidays/special occasions only Patient Tobacco Use Status: Never used Tobacco Smoked in Last 30 Days: No Use of substances other than those prescribed or required for medical reasons: No Advance Directives: No Advance Directives Information Provided: No Physical Exam 2 Vital Signs: Vital Signs: Last Vital Signs Temp 96.9 F 06/14/23 05:19 Pulse 66 06/14/23 05:19 Resp 18 06/14/23 05:19 BP 118/76 06/14/23 05:19 Pulse Ox 100 06/14/23 05:19 O2 Del Method Room Air 06/14/23 05:19 BMI result Body Mass Index 25.4 Appearance: Alert. Oriented X3. No acute distress. Head: normocephalic, atraumatic. Eyes: Pupils equal, round and reactive to light. ENT: Pharynx normal. No tonsillar swelling or exudate. Neck: Normal inspection. Neck supple. CVS: Normal heart rate and rhythm. Pulses normal. Respiratory: No respiratory distress. Breath sounds normal. Abdomen: Soft and nontender. +BS x4 Skin: Skin warm and dry. Normal skin color. Normal skin turgor. No rashes. Extremities: No external rotation or shortening of the left leg. Tender to palpation of the left lateral hip. No lower extremity edema. Superficial skin tear of the left elbow without active bleeding. Scattered ecchymosis on all 4 extremities. Neuro/psych: Oriented X 3. No motor deficit. No sensory deficit. CN II-XII intact. Normal speech and cognition. Course Course Course Narrative: RME:?82 yo F presents today with left hip pain s/p mechanical fall yesterday morning. Presents in wheelchair. Able to ambulate with walker at home since fall. Received call from Lakshmi from ortho who noted greater troch fracture of left femur from xrays taken at this am. Recommended non weight bearing. Non surgical patient requesting STR. Denies head strike or LOC. No AC. Reports left hip pain. TTP over left hip. NV intact distally. PT case management ordered. Full HPI, ROS and PE to be performed by the primary ED provider. Reevaluation(s) Reevaluation #1: Physician observation continued. No overnight events reported by nursing. Vital signs within normal limits. Physical therapy recommending short-term rehab, patient to be followed by case management. Time: 07:29 Reevaluation #2: Per case management, [facility] at 12:00 p.m. today. Time: 08:57 Medications Administered Generic Name Dose Route Start Last Admin Trade Name Missael PRN Reason Stop Dose Admin Acetaminophen 650 mg 06/13/23 15:00 06/14/23 08:04 Acetaminophen 325 Mg Tablet PO 650 mg Q6H KENNEDY Administration Amlodipine Besylate 2.5 mg 06/14/23 09:00 06/14/23 08:03 Amlodipine Besylate 2.5 Mg Tablet PO 2.5 mg DAILY KENNEDY Administration Protocol Cefuroxime Axetil 250 mg 06/13/23 21:00 06/14/23 08:04 Cefuroxime Axetil 250 Mg Tablet PO 06/19/23 21:00 250 mg BID KENNEDY Administration Docusate Sodium 100 mg 06/13/23 21:00 06/14/23 08:03 Docusate Sodium 100 Mg Capsule PO 100 mg BID KENNEDY Administration Melatonin 3 mg 06/14/23 02:15 06/14/23 02:19 Melatonin 3 Mg Tablet PO 3 mg BEDTIME KENNEDY Administration Metoprolol Tartrate 25 mg 06/14/23 02:15 06/14/23 08:04 Metoprolol Tartrate 25 Mg Tablet PO 25 mg BID KENNEDY Administration Protocol Mirtazapine 7.5 mg 06/14/23 02:15 06/14/23 02:35 Mirtazapine 7.5 Mg Tablet PO 7.5 mg BEDTIME KENNEDY Administration Discontinued Medications Generic Name Dose Route Start Last Admin Trade Name Missael PRN Reason Stop Dose Admin Hydrocodone Bitart/Acetaminophen 0.5 tab 06/13/23 15:09 06/13/23 15:23 Hydrocodone Bit/Acetam 5/325 Tablet PO 06/13/23 15:10 0.5 tab ONCE ONE Administration Medical Decision Making Medical Decision Making MDM Narrative: 82-year-old female with a history of a left hip replacement in the past presents to the ER for evaluation of a fall yesterday resulting in left hip pain. subtle greater trochanter fx on x-ray. per ortho NWB on the LLE. PT/CM ordered. Labs ok UA infected - ceftin started. not septic. will place is physician observation pending placement to short term rehab. Differential Diagnosis Differential Diagnoses: The differential diagnosis associated with the presentation includes periprosthetic fracture, avulsion fracture, hematoma, contusion Admission/Observation Consideration of admission/observation: Escalation of care including admission/observation considered Lab Data MDM Lab Attestation statement: I reviewed the patient's lab results. no anemia 06/13/23 15:31 06/13/23 15:31 Labs: Lab Results 06/13/23 Range/Units 15:31 WBC 10.8 (4.8-10.8) X10*3/uL RBC 3.78 L (4.20-5.50) X10*6/uL Hgb 12.2 (12.0-16.0) g/dl Hct 37.0 (37.0-47.0) % MCV 97.9 (80.0-98.0) fL MCH 32.3 (27.0-33.0) pg MCHC 33.0 (31.0-35.0) g/dl RDW 13.3 (11.0-16.0) % Plt Count 258 (160-400) X10*3/uL MPV 10.0 (9.4-12.3) fL Immature Gran % (Auto) 0.3 (0.0-0.4) % Neut % (Auto) 70.6 (45-73) % Lymph % (Auto) 16.6 L (20-40) % Morrow % (Auto) 10.3 (2-11) % Eos % (Auto) 2.0 (0-4) % Baso % (Auto) 0.2 (0-2) % Lymph # (Auto) 1.8 (1.2-4.9) X10*3/uL Morrow # (Auto) 1.1 (0.1-1.2) X10*3/uL Eos # (Auto) 0.2 (0.0-0.4) X10*3/uL Baso # (Auto) 0.0 (0.0-0.2) X10*3/uL Abs Immat Gran (auto) 0.03 (0.00-0.03) X10*3/uL Absolute Neuts (auto) 7.6 (2.0-8.3) x10*3/uL Absolute Nucleated RBC 0.000 (0.0-0.012) X10*3/uL Nucleated RBC % (auto) 0.0 (0.0-0.2) /100WBC Sodium 143 (135-145) mmol/L Potassium 4.7 (3.3-5.1) mmol/L Chloride 106 (96-108) mmol/L Carbon Dioxide 26 (22-29) mmol/L Anion Gap 16 (12-20) BUN 17 H (9-16) mg/dL Creatinine 0.95 (0.5-1.4) mg/dL Estim Creat Clear Calc 36.0 Estimated GFR 56 Random Glucose 107 (60-115) mg/dL Calcium 10.1 D (8.4-10.2) mg/dL Magnesium 2.2 (1.6-2.6) mg/dL Total Bilirubin 0.6 (0.0-1.0) mg/dL Direct Bilirubin 0.2 (0.0-0.5) mg/dL AST 22 (5-31) U/L ALT 14 (0-31) U/L Alkaline Phosphatase 79 (39-117) U/L Total Protein 6.9 (6.5-8.0) g/dL Albumin 4.0 (3.5-5.0) g/dL Urine Color Yellow Urine Appearance Clear Urine pH 6.0 (5.0-9.0) Ur Specific Hodges 1.010 (1.005-1.025) Urine Protein Negative (Neg-Trace) mg/dL Urine Glucose (UA) Negative (Negative) mg/dL Urine Ketones Trace (Negative) mg/dL Urine Blood Large (3+) H (Negative) Urine Nitrite Negative (Negative) Ur Leukocyte Esterase Moderate (2+) H (Negative) Urine RBC >20 H (0-2) /HPF Urine WBC 21-50 H (0-5) /HPF Ur Squamous Epith Cells 0-2 (0-2) /HPF Urine Bacteria None Seen (None Seen) Hyaline Casts 0-2 (0-2) /LPF COVID-19 (KUSH) Negative (Negative) COVID-19 Clin Com See Note Independent Interpretation I performed an independent interpretation of an: Plain X-Ray Interpretation: xray w/ acute fx of greater trochanter, hardware intact, agree w/ radiology read Radiology Impression Discussion of test interpretation with radiology: I have reviewed the radiologist's reading. Radiologist Impression: EXAMINATION: XR HIP, LEFT CLINICAL INFORMATION: Fall COMPARISON: Left hip 03/16/2021 TECHNIQUE: Two views of the left hip. FINDINGS: There is a subtle fracture involving the femur involving the region of the greater trochanter. Lyons images have been saved. No fracture fragment displacement is seen. The hip prosthesis appears unchanged without evidence of loosening or dislocation. XR/XR hip LT w PEL1V IMPRESSION: Subtle fracture involving the greater trochanter of the left femur. Independent Historian Clinical information obtained from an independent historian. History obtained from or confirmed by: Other (adult daughter at bedside) External Record Review External record reviewed: Office record, Outpatient record, Prior outpatient labs and Prior outpatient radiology Prescription Management I considered prescription management with: Pain Medication Critical Care Time Critical Care Time Critical Care Time: No Discharge Plan Discharge Clinical Impression: Hip fracture, left, Acute UTI Patient Disposition: Still a Patient Instructions: Urinary Tract Infection in Women (DC), Hip Fracture (ED) Prescriptions: No Action amlodipine 2.5 mg tablet 2.5 mg PO DAILY metoprolol tartrate 25 mg tablet 25 mg PO BID mirtazapine 7.5 mg tablet 7.5 mg PO BEDTIME
--- NOTE | 2023-06-13 15:09 | PC.NURSE ---
Assumed care of patient at 1500, patient has left hip fx, non-weight bearing recommended by ortho. PT with patient at this time
[2023-06-13 15:18] VITALS: BP 157/70; PULSE 69; O2SAT 97
[2023-06-13] MEDS: Acetaminophen 325 MG TABLET 650 MG PO ×2 (15:23→23:38)
[2023-06-13] MEDS: HYDROcodone Bit/Acetam 5/325 TABLET 0.5 TAB PO (15:23)
[2023-06-13 15:26] VITALS: BP 149/81; PULSE 74; RESP 16; O2SAT 98
--- NOTE | 2023-06-13 15:28 | PC.NURSE ---
met with patient, reports 10/10 pain in left hip s/p moving around PT. purewick placed on patient to reduce movement and overall comfort. KARINA Eldridge in drawing patient now
[2023-06-13 15:37] LABS: MANUAL DIFF FLAG NO
[2023-06-13 15:39] LABS: Basophils Percent Auto 0.2 % (0-2); Eosinophils Absolute Auto 0.2 X10*3/uL (0.0-0.4); Hemoglobin 12.2 g/dl (12.0-16.0); Imm Gran Abs Auto 0.03 X10*3/uL (0.00-0.03); Imm Gran Pct Auto 0.3 % (0.0-0.4); Lymphocytes Absolute Auto 1.8 X10*3/uL (1.2-4.9); Lymphocytes Percent Auto 16.6 % (20-40); Mean Corpuscular Hemoglobin 32.3 pg (27.0-33.0); Mean Corpuscular Volume 97.9 fL (80.0-98.0); Monocytes Absolute Auto 1.1 X10*3/uL (0.1-1.2); Monocytes Percent Auto 10.3 % (2-11); Neutrophils Absolute Auto 7.6 x10*3/uL (2.0-8.3); Neutrophils Percent Auto 70.6 % (45-73); Platelet Count 258 X10*3/uL (160-400); Red Blood Count 3.78 X10*6/uL (4.20-5.50); Red Cell Distribution Width 13.3 % (11.0-16.0); White Blood Count 10.8 X10*3/uL (4.8-10.8)
[2023-06-13 15:40] LABS: Appearance Urine Clear; Color Urine Yellow; Glucose Urine UA Negative (Negative); Leukocyte Esterase Urine Moderate (2+) (Negative); Nitrite Urine Negative (Negative); UMIC TRIGGER UACC YES; Urine Blood Large (3+) (Negative); Urine Ketones Trace mg/dL (Negative); Urine Protein Negative (Neg-Trace)
[2023-06-13 15:47] LABS: Bacteria Urine None Seen (None Seen); Hyaline Casts Urine 0-2 /LPF (0-2); RBC Urine >20 /HPF (0-2); Squamous Epithelial Cell Urine 0-2 /HPF (0-2); UACC Culture Trigger YES; WBC Urine 21-50 /HPF (0-5)
[2023-06-13 15:54] LABS: Alanine Aminotransferase 14 U/L (0-31); Alkaline Phosphatase 79 U/L (39-117); Anion Gap 16 (12-20); Aspartate Amino Transferase 22 U/L (5-31); Bilirubin Direct 0.2 mg/dL (0.0-0.5); Bilirubin Total 0.6 mg/dL (0.0-1.0); Blood Urea Nitrogen 17 mg/dL (9-16); Calcium 10.1 mg/dL (8.4-10.2); Carbon Dioxide 26 mmol/L (22-29); Chloride 106 mmol/L (96-108); Estimated Glomerular Filt Rate 56; Glucose Random 107 mg/dL (60-115); Magnesium 2.2 mg/dL (1.6-2.6); Potassium 4.7 mmol/L (3.3-5.1); Sodium 143 mmol/L (135-145); Total Protein 6.9 g/dL (6.5-8.0)
[2023-06-13 15:55] LABS: COVID-19 Test Negative (Negative); IDNOW Serial# 55D5AD1C
[2023-06-13 20:27] VITALS: BP 121/50; PULSE 64; RESP 14; O2SAT 96
[2023-06-13 22:20] VITALS: BP 103/55; PULSE 72; RESP 12; TEMP 36.8; O2SAT 95
[2023-06-13] MEDS: Docusate Sodium 100 MG CAPSULE PO (23:39)
--- NOTE | 2023-06-13 23:41 | PC.NURSE ---
pt medicated per mar; repositioned to R. side. purewick in place. pt reports being comfortable; denies questions/concerns at this time. lights turned off as pt states would like to sleep. call reyes within reach.
--- NOTE | 2023-06-14 00:59 | PC.NURSE ---
report called to Echo in overflow, [facility] PCT bringing patient over
[2023-06-14 01:27] VITALS: BP 129/61; PULSE 71; RESP 16; TEMP 36.5; O2SAT 95
--- NOTE | 2023-06-14 01:58 | PC.NURSE ---
Acquired care after 0120 in the morning. Pt came from ED. came in via stretcher. Settled in bed. Incontinent with urine. Purewick in use.Cleaned and changed. Skin bruising to bilateral legs noted. Complained of pain when moving but able tolerate the pain. Asking for meds to help sleep. Called the ED CN to ask for meds. Awaiting for new orders. Bed alarm activated.
[2023-06-14] MEDS: Melatonin 3 MG TABLET PO (02:19)
[2023-06-14] MEDS: Mirtazapine 7.5 MG TABLET PO (02:35)
[2023-06-14 05:19] VITALS: BP 118/76; PULSE 66; RESP 18; TEMP 36.1; O2SAT 100
[2023-06-14] MEDS: Docusate Sodium 100 MG CAPSULE PO (08:03)
[2023-06-14] MEDS: amLODIPine Besylate 2.5 MG TABLET PO (08:03)
[2023-06-14] MEDS: Acetaminophen 325 MG TABLET 650 MG PO (08:04)
[2023-06-14] MEDS: Metoprolol Tartrate 25 MG TABLET PO (08:04)
--- NOTE | 2023-06-14 09:36 | MHC.CM.ED ---
Received case management consult due to left hip fx. Non-weight bearing recommended by ortho. Physical therapy eval completed. Rehab is recommended. Met with patient, Juan, son Joe and daughter Jennifer. Patient lives with , uses a cane for mobility at baseline, and had no services prior to coming to the hospital. PCP verified. Patient received 2 Moderna and 1 Pfizer vaccine. Patient has not been inpatient in any hospital in the past 30 days. Explained Medicare would not cover care home but would cover acute rehab if a bed was offered. All verbalized understanding and are agreeable to referral to all 3 acute rehab facilities with [facility] being the 1st choice. Referrals made via [facility]. [facility] able to offer a bed. Patient can leave at 12pm. Patient and family aware and agreeable. Felipe WAYNE booked. Med nec with chart. Continue to monitor for d/c needs.
== END 2023-06-14 12:38 ==
PROVIDERS: Physician Assistant; Physician Assistant Medical; Emergency Provider Emergency Medicine; PCP Family Medicine
DX: S72.002A Fracture of unspecified part of neck of left femur, initial encounter for closed fracture (principal); M97.02XA Periprosthetic fracture around internal prosthetic left hip joint, initial encounter; R10.2 Pelvic and perineal pain; N39.0 Urinary tract infection, site not specified; R26.2 Difficulty in walking, not elsewhere classified; W01.0XXA Fall on same level from slipping, tripping and stumbling without subsequent striking against object, initial encounter; Y93.9 Activity, unspecified; Y92.9 Unspecified place or not applicable; Y99.9 Unspecified external cause status; Z20.822 Contact with and (suspected) exposure to COVID-19
CPT/HCPCS: 36415; 73502; 80048; 80076; 81001; 83735; 85025; 87086; 87635; 97162; 99284

== ENCOUNTER 2023-07-12 15:00 | Outpatient (AMB) | payer MEDICARE, SELFPAY ==
--- NOTE | 2023-07-12 15:17 | MHC.OFFVIS ---
Intake Intake Visit Reasons: ED F/U- FX greater trochanter Left femur Intake Note: Kelley 82 yr old female presents today for her left hip pain. States on jun 13, 2023 she fell at home injuring her hip. Seen at urgent care where xrays were taken and [facility] ER who placed patient in a rehab facility where P.T was done and was discharged to home on 06/29/23. Currently states her pain is better. States she is non WB for her left leg and is currently inn a wheel chair. Pain is currently a 4/10. Allergies oxycodone [From OXYCONTIN] Allergy (Intermediate, Verified 07/12/23 15:29) NAUSEA & VOMITING, hallucinations, vomiting OxyContin Adverse Reaction (Unknown, Uncoded 07/12/23 15:29) pass out HPI ED F/U- FX greater trochanter Left femur HPI Details 82-year-old female who presents in the office today for an evaluation of left leg pain. The patient presented to the Walk-in clinic on 06/13/2023 status post tripping on the carpet which caused her to fall on her left side. X-rays of the left hip were obtained. The patient was placed in a rehab facility by [facility] ED where physical therapy was done. She was discharged home on 06/29/2023. While in the office today she states her pain is better. She confirms being non-weight bearing for the left lower extremity and is currently in a wheel chair. She reports her pain is a 4/10. 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 Able to perform a straight leg raise. NVI. Office Procedures Fracture Care Fracture Billing Code: Fracture Billing Code Assessment & Plan Assessment & Plan (1) Fracture of greater trochanter of left femur: Code(s): S72.112A - Displaced fracture of greater trochanter of left femur, initial encounter for closed fracture Plan Ms. Carnes is an 82-year-old female who presents in the office today for an evaluation of left leg pain. The patient presented to the Walk-in clinic on 06/13/2023 status post tripping on the carpet which caused her to fall on her left side. X-rays of the left hip were obtained. The patient was placed in a rehab facility by [facility] ED where physical therapy was done. She was discharged home on 06/29/2023. While in the office today she states her pain is better. She confirms being non-weight bearing for the left lower extremity and is currently in a wheel chair. She reports her pain is a 4/10. Dr. Banks was available to see the patient with me while in the office today. The patient will remain non-weight bear for a total of 3 months. She will return to the office the week before [place] or the week of for repeat x-rays. We will evaluate her weight bearing status at that time to see if she is able to weight bear with a walker. Follow up will be in 08/2023, or sooner if needed. X-rays of the left lower extremity obtained while in the office today and reviewed by me, Priyanka Moon PA-C, revealed greater trochanter of the left femur. X-rays of the left hip, obtained on 06/13/2023, revealed: Subtle fracture involving the greater trochanter of the left femur. Orders: Orders XR hip LT w PEL1V Today M25.559 - Pain in unspecified hip Patient Instructions: Scribed for Priyanka Moon PA-C by Sol Vasquez medical affairs leader, on 07/12/2023 at 3:00 pm, EST. Coding Level of Care Code Est Pt Level 4 (37661) Diagnoses Fracture of greater trochanter of left femur S72.112A CPT Codes Fracture Care - Fracture Billing Code: Fracture Billing Code ([id number])
== END 2023-07-12 15:59 | disposition home or self-care (01) ==
PROVIDERS: PCP Family Medicine; Visit Provider Physician Assistant
DX: S72.112A Displaced fracture of greater trochanter of left femur, initial encounter for closed fracture (principal)
CPT/HCPCS: 99214

== ENCOUNTER 2023-07-12 15:41 | Outpatient (REF) | payer MEDICARE, SELFPAY ==
--- NOTE | ~2023-07-12 | XR_ITS ---
EXAMINATION: XR HIP, LEFT CLINICAL INFORMATION: Pain in unspecified hip. COMPARISON: 06/13/2023. TECHNIQUE: AP view of the pelvis and 2 views of the left hip. FINDINGS: Stabilization hardware redemonstration of partially imaged lower lumbar spine. Bones are diffusely demineralized. Right total hip prosthesis is incompletely imaged. Pelvic calcifications are likely vascular. Redemonstration of left total hip prosthesis. Hardware appears intact. Previously identified subtle fracture within the region of the greater trochanter is redemonstrated, with mild displacement of fracture fragments. Additional imaging with CT scan or MRI should be considered for better visualization as these modalities are much more sensitive for evaluation of fracture and associated pathology. XR/XR hip LT w PEL1V IMPRESSION: Redemonstration of left total hip prosthesis. Previously identified subtle fracture within the region of the greater trochanter is redemonstrated, with mild displacement of fracture fragments. Additional imaging with CT scan or MRI should be considered for better visualization as these modalities are much more sensitive for evaluation of fracture and associated pathology.
== END 2023-07-12 15:42 | disposition home or self-care (01) ==
LOC: HO.HOSX 15:41
PROVIDERS: Visit Provider Physician Assistant
DX: S72.112A Displaced fracture of greater trochanter of left femur, initial encounter for closed fracture (principal)
CPT/HCPCS: 73502; 99212

== ENCOUNTER 2023-09-06 09:38 | Outpatient (REF) | payer MEDICARE, SELFPAY | END 2023-09-06 09:39 | disposition home or self-care (01) | LOC: HO.HOSX 09:38 | PROVIDERS: Visit Provider Physician Assistant | DX: S72.115D Nondisplaced fracture of greater trochanter of left femur, subsequent encounter for closed fracture with routine healing (principal) | CPT/HCPCS: 72170; 99212 ==

== ENCOUNTER 2023-09-06 10:49 | Outpatient (AMB) | payer MEDICARE, SELFPAY ==
--- NOTE | 2023-09-06 10:53 | A.OFFVIS_ITS ---
Intake Intake Visit Reasons: OV-FX greater trochanter Left femur Intake Note: Kelley is a 82 year old female who presents today for a follow up of her left greater trochanter femur fx, DOI 06/13/23. Patient reports she is doing well. No pain or discomfort. Allergies oxycodone [From OXYCONTIN] Allergy (Intermediate, Verified 09/06/23 10:55) NAUSEA & VOMITING, hallucinations, vomiting OxyContin Adverse Reaction (Unknown, Uncoded 07/12/23 15:29) pass out HPI OV-FX greater trochanter Left femur HPI Details 82-year-old female who presents in the [facility] today for a follow up of a left femur greater trochanter fracture and to discuss her possible weight bear status with the assistance of a walker, which occurred on 06/13/2023 status post tripping on the carpet which caused her to fall on her left side. I last saw the patient in the office on 07/12/2023 when she was instructed to remain non-weight bearing for 3 months. While in the office today the patient reports she is doing well with no pain or discomfort and is sitting in a WC. 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 Able to perform a straight leg raise. NVI. Assessment & Plan Assessment & Plan (1) Fracture of greater trochanter of left femur: Code(s): S72.112A - Displaced fracture of greater trochanter of left femur, initial encounter for closed fracture Qualifiers: Encounter type: subsequent encounter Fracture alignment: nondisplaced Fracture healing: with routine healing Fracture type: closed Qualified Code(s): S72.115D - Nondisplaced fracture of greater trochanter of left femur, subsequent encounter for closed fracture with routine healing Plan Trice is an 82-year-old female who presents in the office today for a follow up of a left femur greater trochanter fracture and to discuss her possible weight bear status with the assistance of a walker, which occurred on 06/13/2023 status post tripping on the carpet which caused her to fall on her left side. I last saw the patient in the office on 07/12/2023 when she was instructed to remain non-weight bearing for 3 months. While in the office today the patient reports she is doing well with no pain or discomfort and is sitting in a WC. Dr. Banks was available to review the x-rays with me while in the office today, but unable to see the patient with me, and a collaborative treatment plan was made. X-rays revealed good bony healing of a greater trochanter fracture on the left. Therefore, the patient may begin to weight bear as tolerated with a walker. The patient plans to go to [place] from 09/27/2023 to 02/2023 or 03/2023. I ordered [facility] for the patient to work with physical therapy to work on glute, core, quad strengthening, as well as gait training with a walker. If they need help facilitating physical therapy in [place], they will contact our office and I will do what I can to assist with services. They will follow up after they return from [place], or sooner if needed. X-rays of the pelvis which were obtained while in the office today and were reviewed by me, Priyanka Moon PA-C, revealed routine healing of a left greater trochanter fracture. Orders: Orders XR pelvis 1-2V Today M25.559 - Pain in unspecified hip [facility]errals [facility] Referral S72.112A - Displaced fracture of greater trochanter of left femur, initial encounter for closed fracture Patient Instructions: Scribed for Priyanka Moon PA-C by Sol Vasquez medical laboratory specialist, on 09/06/2023 at 10:55 am, EST. Coding Level of Care Code Global (81211) Diagnoses Closed nondisplaced fracture of greater trochanter of left femur with routine healing, subsequent encounter S72.115D Encounter type: subsequent encounter Fracture alignment: nondisplaced Fracture healing: with routine healing Fracture type: closed
== END 2023-09-06 11:35 | disposition home or self-care (01) ==
PROVIDERS: PCP Family Medicine; Visit Provider Physician Assistant
DX: S72.115D Nondisplaced fracture of greater trochanter of left femur, subsequent encounter for closed fracture with routine healing (principal)
CPT/HCPCS: 99213

== ENCOUNTER 2024-04-25 16:24 | Outpatient (AMB) | payer MEDICARE, SELFPAY ==
--- NOTE | 2024-04-25 16:25 | AM.OFFWIN_ITS ---
Intake Vital Signs 04/25/24 16:26 Height 5 ft Weight 130 lb BMI 25.4 BP 122/78 Blood Pressure Location Rt brachial Position Sitting Pulse 85 Pulse Source Pulse Oximeter Temp 98.2 F Temp Source Oral Pulse Oximetry (%) 96 Oxygen Delivery Method Room Air Intake Visit Reasons: EP Bilateral arm pain Intake Note: pt c/o bilateral arm pain Patient Tobacco Use Status: Never used Tobacco Allergies oxycodone [From OXYCONTIN] Allergy (Intermediate, Verified 04/25/24 16:25) NAUSEA & VOMITING, hallucinations, vomiting OxyContin Adverse Reaction (Unknown, Uncoded 04/25/24 16:25) pass out Do you need a note to return to daycare/school/sports/work: No HPI HPI Comments History of Present Illness Details Patient is an 83-year-old female complaining of bilateral arm pain. She states she typically gets steroid injections from [facility] and thinks her last 1 might have been in February. She states her arms hurt from her shoulders down to her fingertips. She has a history of frozen shoulder and was told she needed shoulder replacement surgery with that she was too old and no one would operate on her. She tells me she had rotator cuff surgery on the left shoulder many years ago. She has tried lidocaine patches and Tylenol without much relief. She states that she would like some prednisone today. 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 Review of Systems Const All systems reviewed & are unremarkable except as noted in HPI and below Physical Exam Const General: cooperative, healthy appearing, comfortable, no acute distress and well developed Orientation/consciousness: patient oriented x3 Limitations: no limitations Neuro General: patient oriented x3 Assessment & Plan Assessment & Plan (1) Shoulder pain with history of repair of rotator cuff: Code(s): M25.519 - Pain in unspecified shoulder; Z98.890 - Other specified postprocedural states Plan: Recommended Voltaren gel, also diclofenac, told her she could take 1-2 tablets as needed for the pain and to follow up with her primary care doctor because she may need physical therapy. Plan See above Medications: New diclofenac potassium 25 mg PO TID 25 caps 0RF Coding Level of Care Code New Pt Level 3 (68579) Diagnoses Shoulder pain with history of repair of rotator cuff M25.519; Z98.890
[2024-04-25 16:26] VITALS: BP 122/78; PULSE 85; TEMP 36.8; O2SAT 96; BMI 25.4
== END 2024-04-25 16:49 | disposition home or self-care (01) ==
PROVIDERS: PCP Family Medicine; Visit Provider Physician Assistant
DX: M25.511 Pain in right shoulder (principal); Z98.890 Other specified postprocedural states; M25.512 Pain in left shoulder
CPT/HCPCS: 99213

== ENCOUNTER 2025-04-22 09:02 | Outpatient (AMB) | payer MEDICARE, SELFPAY ==
--- NOTE | 2025-04-22 09:04 | AM.OFFWIN_ITS ---
Intake Vital Signs 04/22/25 09:05 Height 5 ft Weight 135 lb BMI 26.4 BP 104/66 Blood Pressure Location Lt brachial Position Sitting Pulse 80 Pulse Source Pulse Oximeter Temp 97.7 F Temp Source Oral Pulse Oximetry (%) 95 Oxygen Delivery Method Room Air Intake Visit Reasons: EP Stomach pain radiating into back Intake Note: presents with stomach pain radiating to back for 2 days Patient Tobacco Use Status: Never used Tobacco Allergies oxycodone (From OXYCONTIN) Allergy (Intermediate, Verified 04/22/25 09:07) NAUSEA & VOMITING, hallucinations, vomiting OxyContin Adverse Reaction (Unknown, Uncoded 04/25/24 16:25) pass out Do you need a note to return to daycare/school/sports/work: No HPI HPI Comments History of Present Illness Details History - The patient is an 84-year-old female p resenting with acute abdominal and back pain. - Pain onset was sudden, sharp, and excr uciating, starting yesterday. - Symptoms include dizziness, shortness of breath, and sweating. - No abdominal aneurysm history; cerebra l aneurysm history noted. - Denies nausea, vomiting, palpitations, and fever. - Medication changes: Duloxitine dose in creased, magnesium started. Physical Exam General: cooperative, healthy appearing, slightly uncomfortable, patient oriented x3 Head: Yes normal to inspection and Yes normocephalic General nose exam: Normal external nose present Face and sinus: Yes normal facial exam Effort & Inspection: normal respiratory effort and able to speak in complete sentences GI: soft, TTP epigastric area, negative Beard's, negative McBurney's Back/spine: cervical, thoracic and lumbar spine normal to inspection cervical ROM normal, thoracic ROM normal, lumbar ROM normal no Cervical, thoracic or lumbar spine tenderness Extremities: moving all extremities normally neuro: A&Ox3, unstable and slow gait [facility] Medical History (Updated 04/22/25 @ 09:37 by Kenyatta Holloway PA-C) Fall Diverticulosis Brain aneurysm No known health problems Social History Alcohol intake: current Alcohol intake frequency: holidays/special occasions only Patient Tobacco Use Status: Never used Tobacco Current occupational status: retired and disabled 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 - patient is an 84-year-old female with a past medical history of a brain aneurysm complaining of 2 days of Sharp abdominal Pain which radiates to her back, she also has some associated dizziness, is eating and drinking normally. VSS, pt in mild distress/uncomfortable and walking gingerly due to her pain and she also has epigastric tenderness, will send to ED to rule out abdominal aortic aneurysm, pancreatic pathology vs other. - I explained to the patient and her that she needs to have a abdominal aortic aneurysm rupture/leak ruled out and if she goes to [facility], they will be able to do the imaging and if it is positive, they will have the surgical team on-site to do a repair. Explained she could go to [facility] and they can obtain the imaging but if it is positive, she will need to be transferred via ambulance to [facility]. I explained that this would be a delay in care and thus more risk. Patient and her both agreed they would assume this extra risk and they will be going to [facility] Emergency Department. - Called [facility] with expect, 9:35AM (2) Back pain: Code(s): M54.9 - Dorsalgia, unspecified Plan: as above Coding Level of Care Code New Pt Level 5 (94519) Diagnoses Epigastric abdominal pain R10.13 Back pain M54.9
[2025-04-22 09:05] VITALS: BP 104/66; PULSE 80; TEMP 36.5; O2SAT 95; BMI 26.4
--- OUTSIDE RECORDS SUMMARY | 2025-04-22 09:15 | XMS_ITS | Encounter Summary ---
Author Organization [facility] Address [address] [place] [address] Phone Care Team Providers Care Middle [employer] Director Name Role Phone Meredith Castro MD, MPH Primary Care Provid er Meredith Castro MD, MPH Unavailable [phone]- [phone] Crys Dang MD Unavailable [phone] Encounter Details Date Type Department Care Team (Late st Contact Info) Description 09/22/2022 Procedure Pass [facility], Ct Scan - [facility] [address] [place] [address] Social History Tobacco Use Types Packs/Day Years Used Date Smoking Tobacco: Never Smokeless Tobacco: Never Alcohol Use Standard Drinks/Week Comments Yes 0 (1 standard drink = 0.6 oz pur e alcohol) glass of wine once a month Comments Unknown Sex and Gender Information Value Date Recorded Sex Assigned at Female 02/21/2021 11:41 AM EDT Legal Sex Female 4:06 PM EDT Gender Identity Female 02/21/2021 11:41 AM EDT Sexual Orientation Not on file documented as of this encounter Plan of Treatment Upcoming Encounters Date Type Department Care Team (Late Contact Info) Description 06/11/2025 10:40 AM EDT Office Visit [facility] [address] [place] [address] Darren Bocanegra MD [address] [place] [address] 04/20/2026 10:40 AM EDT Office Visit [facility] [address] [place] [address] Meredith Castro MD, MPH [address] [place] [address] Darren Bocanegra MD [address] [place] [address] documented as of this encounter Visit Diagnoses Not on filedocumented in this encounter Care Teams Middle School Director Relationship Specialty Start Date End Date Meredith Castro MD, MPH [address] [place] [address] [address] [place] [address] PCP - General Family Medicine 09/14/20 Meredith Castro MD, MPH [address] [place] [id number] Insurance Assigned Provider 12/22/23 Crys Dang MD [address] [place] [id number] Cardiology 04/25/24 documented as of this encounter Additional Source Comments The information contained in this document represents components of the legal health record. It is not the complete legal health record.[facility]
--- OUTSIDE RECORDS SUMMARY | 2025-04-22 09:17 | XMS_ITS | Patient Health Record ---
Author Organization [facility] Address [address] [place] [address] Care Team Providers Care Vascular Physician Name Role Phone Kristin Jaramillo MD Primary Care Provider Tha Thompson Unavailable [phone] Allergies Allergen (clinical drug ingredient) Drug/Non Drug Allergy documented on EMR Reaction Allergy Type Onset Date Status oxycodone Oxycodone HCl Unknown Drug Allergy Act charisse seasonal allergies (uncoded) Unknown Allergy Active Reason For Referral No Information Medications Medication SIG (Take, Route, Fr equency, Duration) Notes Start Date End Date Status Ondansetron 4 MG 1 tablet on the tong ue and allow to dissolve Orally 1 po qam and 1po qhs Active Gabapentin 300 MG 2 tablet qhs Active traMADol HCl 50 MG 2 pills Orally daily Active Carisoprodol 350 MG 1 tablet as needed O rally bid Active Centrum Silver Orally once daily Active Baby Aspirin 81mg 1 po qd No t-Taking MiraLax 1 packet mixed with 8 ounces of fluid Orally Once a day Not-T aking Omeprazole 20 MG 1 Orally Once a day for 30 day(s) Active Carvedilol 3.125 MG 1 Orally bid Active Immunizations Vaccine Route Administration Date Status Comme nts Flu vaccine no Preserv 3 and > Unknown 07/27/2015 Admin istered Influenza Unknown 06/25/2019 Administered Social History Tobacco Use: Social History Observation Description Date Details (start date - stop date) Former Smoker NA - NA Tobacco Use/Smoking Question Answer Notes Patient is a former smoker When did you stop smoking? 50 How long has it been since you last smoked? > 10 years Alcohol Screen Question Answer Notes Did you have a drink contain ing alcohol in the past year? Yes How often did you have a dri nk containing alcohol in the past year? 2 to 3 times a week (3 points) How many drinks did you have on a typical day when you were drinking in the past year? 1 or 2 drinks (0 point) How often did you have 6 or more drinks on one occasion in the past year? Never (0 point) Points 3 Interpretation Positive Section Notes: Nonsmoker; no sig alcohol Nonsmoker; no sig alcohol Nonsmoker; no sig alcohol Problems Problem Type SNOMED Code ICD Code Onset Dates Problem Status W/U Status Risk Notes Problem [id number] Encounter for screening for malignant neoplasm of colon (Z12.11) Active confirmed Problem 52604794 Calculus of gallbladder without cholecystitis without obstruction (K80.20) Active confirmed Problem 809402717 Nausea (R11.0) Active confirmed Problem 92538955 Anorexia (R63.0) Active confirmed Problem Encounter for screening for malignant neoplasm of rectum (Z12.12) Active confirmed Problem 518787328 Gastroesophageal reflux disease, esophagitis presence not specified (K21.9) Active confirmed Problem 002307505 Long-term use of aspirin therapy (Z79.82) Active confirmed Problem 18477631 Constipation, unspecified constipation type (K59.00) Active confirmed Plan Of Treatment Pending Test Test Name Order Date NUC HIDA SCAN 03/17/2020 Future Test Test Name Order Date COLONOSCOPY 03/30/2016 Insurance Providers Payer Name Payer Address Payer Phone Subscriber Number Group Number Insured Name Patient Relationship to Insured Coverage Start Date Coverage End Date MEDICARE OF [place] [address] [place] [id number] ANKIT WILCOX Self - patient is the insured [employer] ATTN CLAIMS [address] [place] [address] [phone] [id number] ANKIT WILCOX Self - patient is the insured Medical (General) History Medical History History ICD Code GERD--EGD 1996-mild GERD, neg Hpylori--r estarted Omeprazole in 03/2020 Diverticulitis--admitted to hospital in [place] for IV antibiotics--winter Denies MT,DM,CVA,Lung disease,renal dise ase Pelvic fracture after a fall in 02/2016--seeing Dr. Pennington for back pain and sciatica Colonoscopy 2001 and 01/2017 negative exc ept for diverticulosis Gallstones on 02/2020 U/S--normal HIDA sc an in 03/2020 Surgical History Surgery Date(Month/Year) Cerebral aneurysm--had surgey--could not do angiographically Fractured right hip Appendectomy Rotator cuff surgery--left Left hip replacement 03/2019
--- OUTSIDE RECORDS SUMMARY | 2025-04-22 09:17 | XMS_ITS | Clinical Summary ---
Author Organization [facility] Address [address] [place] [id number] Care Team Providers Care Cushion Assembler Name Role Phone Unavailable Primary Care Provider Unavailabl e Social History Tobacco Use Types Packs/Day Years Used Date Smoking Tobacco: Never Assessed Comments Unknown Sex and Gender Information Value Date Recorded Sex Assigned at Not on file Legal Sex Female 8:52 PM EST Gender Identity Not on file Sexual Orientation Not on file Plan of Treatment Health Maintenance Due Date Last Done Comments DTaP,Tdap,and Td Vaccines (1 - Tdap) 1959 Pneumococcal Vaccine: 50+ Ye ars (1 of 1 - PCV) 1989 Zoster Vaccines (1 of 2) 1989 RSV Immunization Adult Patie nts (1 - 1-dose 75+ series) 2014 Falls Risk Assessment 10/12/2023 Osteoporosis Screening (Bone Density Screening) 10/12/2023 Social Influencers of Health Screening 10/12/2023 COVID-19 Vaccine ( - 2023-2 5 season) 2024 Depression Screening 09/17/2024 Influenza Vaccine (#1) 2025 HIB Vaccines Aged Out No longer eligi ble based on patient's age to complete this topic HPV Vaccines Aged Out No longer eligi ble based on patient's age to complete this topic Hepatitis A Vaccines Aged Out No long er eligible based on patient's age to complete this topic Hepatitis B Vaccines Aged Out No long er eligible based on patient's age to complete this topic IPV Vaccines Aged Out No longer eligi ble based on patient's age to complete this topic MMR Vaccines Aged Out No longer eligi ble based on patient's age to complete this topic Meningococcal ACWY Vaccine Aged Out N o longer eligible based on patient's age to complete this topic Meningococcal B Vaccine Aged Out No l onger eligible based on patient's age to complete this topic RSV Immunization Patients Un valencia 20 months Aged Out No longer eligible b ased on patient's age to complete this topic Varicella Vaccines Aged Out No longer eligible based on patient's age to complete this topic
--- OUTSIDE RECORDS SUMMARY | 2025-04-22 09:17 | XMS_ITS | Patient Health Record ---
Author Organization [facility] Address [address] [place] [address] Care Team Providers Care Buggy Driver Name Role Phone Zulema Lyn Primary Care Provid er [phone] ClovisBlanca monroe Unavailable [phone] Abreu, Carey Unavailable [phone] Allergies Allergen (clinical drug ingredient) Drug/Non Drug Allergy documented on EMR Reaction Allergy Type Onset Date Status oxycodone Oxycodone Unknown Drug Allergy Active Results Component Value Reference Range Notes CBC (INCLUDES DIFF/PLT) Reviewed date:01/19/2025 11:56:00 AM Interpretation: Performing Lab:SD, [facility], [address] [place], [address] [address] Zehra Chan Notes/Report: NON-FASTING NON-FASTING NON-FASTING NON-FASTING URINALYSIS, COMPLETE W/REFLE X TO CULTURE Reviewed date:01/19/2025 11:56:00 AM Interpretation: Performing Lab:SD, [facility], [address], [place], [phone] [address] Zehra Chan Notes/Report: NON-FASTING NON-FASTING NON-FASTING NON-FASTING COMPREHENSIVE METABOLIC PANE L Reviewed date:01/19/2025 11:56:00 AM Interpretation: Performing Lab:SD, [facility], [address], [place], [address] [address] Zehra Chan Notes/Report: NON-FASTING NON-FASTING NON-FASTING NON-FASTING PT AND PTT with INR Reviewed date:01/19/2025 11:56:00 AM Interpretation: Performing Lab:SD, [facility], [address] [place] [address], [phone] [address] Zehra Chan Notes/Report: NON-FASTING NON-FASTING NON-FASTING NON-FASTING PARTIAL THROMBOPLASTIN TIME, ACTIVATED TNP TEST NOT PERFORMED Specimen unsuitable for testing due to hemolysis. INR TNP TEST NOT PERFORMED Specimen unsuitable for testing due to hemolysis. Urine Culture and Sensitivit y Reviewed date:01/19/2025 11:56:00 AM Interpretation: Performing Lab:[facility], [address] [place] [address], [phone] DR[address] Zehra Chan Notes/Report: NON-FASTING NON-FASTING NON-FASTING NON-FASTING CULTURE, URINE, ROUTINE SEE NOTE CULTURE, URINE, ROUTINE Micro Number: [id number] Test Status: Final Specimen Source: Urine Specimen Quality: Adequate Result: 50,000-100,000 CFU/mL of Enterococcus faecalis E.faecalis INT JR AMPICILLIN S <=2 CIPROFLOXACIN S 1 NITROFURANTOIN S <=16 VANCOMYCIN S 1 S = Susceptible I = Intermediate R = Resistant NS = Not susceptible SDD = Susceptible Dose Dependent * = Not Tested NR = Not Reported NN = See Therapy Comments CULTURE, URINE, ROUTINE Reviewed date:01/19/2025 11:56:01 AM Interpretation: Performing Lab:[facility], [address] [place] [address], [phone] DR[address] Zehra Chan Notes/Report: NON-FASTING NON-FASTING NON-FASTING NON-FASTING REFLEXIVE URINE CULTURE CULT URE INDICATED - RESULTS TO FOLLOW Reason For Referral Reason pre-op consult Pmh x: Other complications of anesthesia Diagnosis 1 Pre-op evaluation (Z 01.818) Referral Organization [facility] Referring Provider First Name Zulema wallace Referring Provider Last Name Marcelo lane Referring Provider Speciality Nurse Prac titioner Referred Provider Specialty Anesthesiolo gy General Notes Lizett Braba 0 01/16/2025 12:04:26 PM >SENT SMS Referral Priority Routine Medications Medication SIG (Take, Route, Frequency, Duration) Notes Start Date End Date Status HYDROcodone-Acetaminophen 5-325 MG 1 tablet as needed Orally every 6 hrs Active Mirtazapine 15 MG 1 tablet at bedtime Orally Once a day Active DULoxetine HCl 30 MG 1 capsule Orally On ce a day Active dilTIAZem HCl ER 120 MG 1 capsule Orally Twice a day Active Metoprolol Succinate 25 MG 1 capsule Ora lly Once a day Active Nitrofurantoin Monohyd Macro 100 MG 1 capsule with food Orally every 12 hrs; Duration: 5 days 01/20/2025 Active Social History Tobacco Use: Social History Observation Description Date Details (start date - stop date) Never Smoker NA - NA Sex Assigned At : Social History Observation Description Sex Assigned At Female AUDIT-C (Standard) Question Answer Notes Did you have a drink containing alcohol in the p ast year? No Points 0 Interpretation Negative Tobacco Control (Standard) Question Answer Notes Tobacco use: Nonsmoker Problems Problem Type SNOMED Code ICD Code Onset Dates Problem Status W/U Status Risk Notes Problem Chronic pain (14683185) Chronic pain (G89.29) Active confirmed pain level improved since surgery. Still adjusting the levels Problem Cardiac arrhythmia (538972810) Cardiac arrhythmia (I49.9) Active confirmed well controlled, continue current therapy Problem Pain of right shoulder region (finding) (1483223559) Pain in right shoulder (M25.511) Active confirmed Problem Shoulder joint pain (746740613) Pain in left shoulder (M25.512) Active confirmed Problem Acute cystitis (96458857) Acute cystitis without hematuria (N30.00) Active confirmed antibx Problem History of circulatory system disease (074933576) Personal history of other diseases of the circulatory system (Z86.79) Active confirmed Problem Chronic pain (93863729) Other chronic pain (G89.29) Active confirmed Problem Moderate recurrent major depression (74932239) Moderate episode of recurrent major depressive disorder (F33.1) Active confirmed stable continue current therapy Problem Postprocedural states (712890131) Other specified postprocedural states (Z98.890) Active confirmed Problem Abnormal gait (41049327) Impaired gait (R26.9) Active confirmed 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 Problem High risk drug monitoring status (311775265) oysterman use of opioid (Z79.891) Active confirmed Vital Signs Temperature 97 degrees Fahrenheit 02/13/2025 This geronimo orning at pain mgmt office: 128/76 Respiratory Rate 17 /min 02/13/2025 This mornin g at pain mgmt office: 128/76 Oximetry 98 % 02/13/2025 This morning at pain mgmt office: 128/76 Blood pressure diastolic 76 mm Hg 02/13/2025 Thi s morning at pain mgmt office: 128/76 Height 60 in 02/13/2025 This morning at pain mgmt office: 128/76 Blood pressure systolic 150 mm Hg 02/13/2025 This morning at pain mgmt office: 128/76 Weight 133.8 lbs 02/13/2025 This morning at pain mgmt office: 128/76 BMI 26.13 kg/m2 02/13/2025 This morning at pain mgmt office: 128/76 Encounters Encounter Location Date Provider Diagnosis [facility] [address] [place] [address] 01/15/2025 Zulema Cox Pre-op evaluation Z01.818 ; Encounter to establish care Z76.89 ; Arthritis M19.90 ; Brain aneurysm I67.1 ; Chronic pain G89.29 ; Cardiac arrhythmia I49.9 and Other complications of anesthesia, subsequent encounter T88.59XD [facility] [address] [place] [address] 01/20/2025 Misty Abreu Pre-op evaluation Z01.818 ; Pain in left shoulder M25.512 ; Pain in right shoulder M25.511 ; oysterman use of opioid Z79.891 ; Chronic pain G89.29 ; Other specified postprocedural states Z98.890 ; Personal history of other diseases of the circulatory system Z86.79 ; Cardiac arrhythmia I49.9 ; Moderate episode of recurrent major depressive disorder F33.1 ; Acute cystitis without hematuria N30.00 ; Impaired gait R26.9 and Dependence on cane Z99.89 [facility] [address] [place] [address] 02/13/2025 Zulema Cox Postoperative follow-up Z09 and Chronic pain G89.29 [facility] [address] [place] [address] 01/16/2025 Zulema Cox [facility] [address] [place] [address] 01/19/2025 [facility] Marcelo Valenteha Pre-op evaluation Z01.818 [facility] [address] [place] [address] 02/02/2025 [facility] [address] [place] [address] [facility]/02[facility] Encounter Date Diagnosis (ICD Code) Assessment Notes Treatment Notes Treatment Clinical Notes Section Notes 01/15/2025 Pre-op evaluation (ICD-10 - Z01.818) 01/15/2025 Encounter to establish care (ICD-10 - Z76.89) Spent more than 30 minutes with new patient counseling and reviewing patients Hx 01/19/2025 Pre-op evaluation (ICD-10 - Z01.818) 01/20/2025 Pre-op evaluation (ICD-10 - Z01.818) pt is stable for planned low risk procedure to implant a PNS under MAC aneashesia 01/20/2025 Pain in left shoulder (ICD-10 - M25.512) 02/13/2025 Chronic pain (ICD-10 - G89.29) pain level improved since surgery. Still adjusting the levels Going back to [place] in 1 week. Will find a local industrial painter there to continue PSN adjustment. They will cont tx with patient-controll ed adjusted with the help of her /caretake r. 02/13/2025 Postoperative follow-up (ICD-10 - Z09) 4 weeks after PNS implantation Stable, device in place 01/20/2025 Pain in right shoulder (ICD-10 - M25.511) 01/15/2025 Arthritis (ICD-10 - M19.90) BL shoulders and R knee Patient under care of ortho and pain management. Pending PNS implantation 01/15/2025 Brain aneurysm (ICD-10 - I67.1) Stable 01/20/2025 longterm use of opioid (ICD-10 - Z79.891) 01/15/2025 Chronic pain (ICD-10 - G89.29) Under the care of pain management. Pending PNS implantation 01/20/2025 Chronic pain (ICD-10 - G89.29) 01/15/2025 Cardiac arrhythmia (ICD-10 - I49.9) pe rpt: skipped beats --> PVCs, will request records from previous PCP & food vendor Under the care of her food vendor. Will request records 01/20/2025 Other specified postprocedural states (ICD-10 - Z98.890) 01/20/2025 Personal history of other diseases of the circulatory system (ICD-10 - Z86.79) 01/15/2025 Other complications of anesthesia, subsequent encounter (ICD-10 - T88.59XD) Must undergo clearance per anesthesiology. Referral active and in place 01/20/2025 Cardiac arrhythmia (ICD-10 - I49.9) well controlled, continue current therapy 01/20/2025 Moderate episode of recurrent major depressive disorder (ICD-10 - F33.1) stable continue current therapy 01/20/2025 Acute cystitis without hematuria (ICD-10 - N30.00) antibx 01/20/2025 Impaired gait (ICD-10 - R26.9) 01/20/2025 Dependence on cane (ICD-10 - Z99.89) 01/20/2025 Other Plan Of Treatment Pending Test Test Name Order Date Chest X-ray PA and lateral 01/15/2025 Electrocardiogram (EKG) 01/15/2025 PT AND PTT with INR 01/19/2025 Insurance Providers Payer Name Payer Address Payer Phone Subscriber Number Group Number Insured Name Patient Relationship to Insured Coverage Start Date Coverage End Date MEDICARE [address] [address] [place] [phone] [id number] ALYSSAKIM BONILLANE Self - patient is the insured [facility] Medicare Advantage [address] [address] [place] [address] [phone] [id number] ALYSSAYASHIRA BONILLAANKIT Self - patient is the insured [facility] [address] [place] [address] [phone] [id number] BRENDEN ANKIT Self - patient is the insured Medical (General) History Surgical History Surgery Date(Month/Year) brain aneurysm 20 years ago hips replase [phone] left shoulder 2015 back surgery 2020
== END 2025-04-22 10:20 | disposition home or self-care (01) ==
PROVIDERS: PCP Family Medicine; Visit Provider Physician Assistant
DX: R10.13 Epigastric pain (principal); M54.9 Dorsalgia, unspecified

== ENCOUNTER 2025-04-22 09:54 | Emergency (ER) | payer MEDICARE, SELFPAY ==
--- NOTE | ~2025-04-22 | CT_ITS ---
EXAMINATION: CT ABDOMEN PELVIS WITH IV CONTRAST HISTORY: abd pain, Left sided tenderness mostly COMPARISON: There are no prior studies for available comparison. TECHNIQUE: CT scan of the abdomen and pelvis was performed following administration of 85 mL Omnipaque 350 using standard departmental protocol. Coronal and sagittal reformatted images were generated and reviewed. Oral contrast material was not administered at the request of the referring physician. This CT exam was performed with one or more of the following dose reduction techniques: automated exposure control, adjustment of the mA and/or kV according to patient size, use of iterative reconstruction technique. DLP: 383 mGy-cm FINDINGS: LOWER CHEST: The visualized lung bases are clear. There is no pleural effusion. CARDIOVASCULATURE: The heart is normal in size. There is no pericardial effusion. LIVER: The liver is normal in size and contour. No liver mass is identified. The hepatic and portal veins are patent. GALLBLADDER / BILE DUCTS: There is probable cholelithiasis. There is no intra or extrahepatic biliary ductal dilatation. SPLEEN: The spleen is normal in size. No focal splenic lesion is identified. PANCREAS: The pancreas is unremarkable in appearance. ADRENAL GLANDS: Within normal limits. KIDNEYS/RETROPERITONEUM: No renal calculi are identified. There is no hydronephrosis. There is a 2.4 cm cyst in the interpolar region of the right kidney and a 3.5 cm cyst at the lower pole. LYMPH NODES: No abdominal or pelvic lymphadenopathy. VASCULATURE: The abdominal aorta demonstrates atherosclerotic calcification, but is normal in caliber. MESENTERY/PERITONEUM: No free fluid. No masses. There is no free intraperitoneal gas. STOMACH: The stomach is collapsed, limiting evaluation. SMALL BOWEL: The small bowel is normal in caliber. COLON: There is a large amount of stool throughout the colon. There is diverticulosis of the descending and sigmoid colon, without evidence of diverticulitis. APPENDIX: The appendix is not seen, however no inflammatory changes are seen adjacent to the cecum. URINARY BLADDER/PELVIC ORGANS: The urinary bladder is obscured by streak artifact from bilateral total hip arthroplasties. The patient is status post hysterectomy. BONES / SOFT TISSUES: There is posterior fusion of L4 and L5 with pedicle screws. The patient is status post T11 and T12 kyphoplasty. There is degenerative disc disease of the spine. CT/CT abdomen pelvis w IV con IMPRESSION: 1. Large amount of stool throughout the colon. 2. Diverticulosis of the descending and sigmoid colon, without evidence of diverticulitis. 3. Probable cholelithiasis. Electronically signed by: Tha Morales MD 04/22/2025 01:34 PM EDT
--- NOTE | ~2025-04-22 | XR_ITS ---
EXAMINATION: XR CHEST 2 VIEWS HISTORY: chest pain COMPARISON: Comparison is made with the prior examination dated 09/01/2020. FINDINGS: PA and lateral views of the chest are submitted. The lungs are expanded and clear. There is no pleural effusion, pneumothorax, or pulmonary vascular congestion. The heart is normal in size. The aorta is calcified. There is degenerative disc disease of the spine. There are compression deformities of multiple thoracic vertebral bodies. The patient is status post multilevel lower thoracic kyphoplasty. A battery pack is seen in the region of the left shoulder with leads ending to both shoulders. XR/XR chest 2V IMPRESSION: No acute cardiopulmonary abnormality. Electronically signed by: Tha Morales MD 04/22/2025 11:15 AM EDT
--- NOTE | 2025-04-22 10:20 | ED_ITS ---
HPI - General Adult General Chief complaint: Abdominal Pain Stated complaint: ABD/ Back Pain, Time Seen by Provider: 04/22/25 10:19 History of Present Illness ED Provider: Reyna HPI narrative: The patient is an 84-year-old woman who says that she woke up yesterday morning with midabdominal pain that radiated to her back. She had the pain throughout the day yesterday. The pain did not lateralized. It was not associated with any nausea or vomiting. It was not associated with any diarrhea. It was not associated with any loss of appetite. She says that the pain was associated with a sense of just not feeling well. She still had the pain this morning in her drove her to the hospital. She says that she ate a bagel for breakfast this morning. The pain is feeling slightly less bad now that she has arrived here. Related Data Home Medications ?Medication ?Instructions ?Recorded ?Confirmed metoprolol tartrate 25 mg tablet 25 mg PO BID 10/05/22 06/14/23 mirtazapine 7.5 mg tablet 7.5 mg PO BEDTIME 05/01/23 0 06/14/23 diltiazem HCl 120 mg 120 mg PO DAILY 04/22/25 capsule,extended release 12 hr duloxetine 60 mg capsule,delayed 60 mg PO DAILY release magnesium aspart,citrate,oxide mg PO 04/22/25 multivitamin 1 tab PO DAILY 04/22/25 mv-mn-folic 200 mcg-vit K 15 cap PO 04/22/25 mcg-lutein 5 mg-zeaxanthin 1 mg capsule (PreserVision AREDS 2 Plus Multivit) Allergies Allergy/AdvReac Type Severity Reaction Status Date / Time oxycodone (From OXYCONTIN) Allergy Intermediate NAUSEA & Verified 04/22/25 10:23 VOMITING, hallucinations, vomiting OxyContin AdvReac Unknown pass out Uncoded 04/22/25 10:23 Review of Systems 2 Review of Systems: Yes all other systems are reviewed and are negative [facility] Past Medical History Medical History (Updated 04/22/25 @ 14:16 by Al Orellana MD) Fall Diverticulosis Brain aneurysm No known health problems Social History Social History Unable to assess alcohol history related to: Unknown Alcohol intake: current Alcohol intake frequency: holidays/special occasions only Patient Tobacco Use Status: Never used Tobacco Smoked in Last 30 Days: No Use of substances other than those prescribed or required for medical reasons: Unknown Advance Directives: No Advance Directives Information Provided: Yes Current occupational status: retired and disabled 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 She has a somewhat subdued demeanor. She does not appear in acute distress. HENMT Other: The face is symmetrical. ?Mucous membranes moist. Eyes Other: Pupils are round equal, conjunctivae clear Neck Neck: Yes normal visual inspection, Yes full ROM and Yes no JVD Resp Effort & Inspection: normal respiratory effort Auscultation: clear to auscultation bilaterally Cardio Rate: regular rate Rhythm: regular rhythm Heart sounds: S1 normal heart sound present and S2 normal heart sound present GI Other: Abdomen is flat and soft. She has diffuse tenderness without distinct focal rebound or guarding. Skin Other: Skin is dry and unremarkable Neuro Other: The patient is awake and alert. Orientation is appropriate. Mental status is normal. Cranial nerves are intact. She moves her extremities symmetrically and appropriately. Extrem Other: There is no calf swelling or tenderness. No asymmetry. No peripheral edema. Medications Administered Discontinued Medications Generic Name Dose Route Start Last Admin Trade Name Missael PRN Reason Stop Dose Admin Famotidine 20 mg 04/22/25 10:57 04/22/25 11:17 Famotidine/Pf 20 Mg/2 Ml Vial IVPUSH 04/22/25 10:58 20 mg ONCE ONE Administration Sodium Chloride 1,000 mls @ 999 mls/hr 04/22/25 13:00 04/22/25 14:36 Ns IV 04/22/25 14:00 Infused .Q1H1M KENNEDY Infusion Iohexol 100 ml 04/22/25 13:24 04/22/25 13:24 Iohexol 350 Mg/Ml 100 Ml Infus..Btl IV 04/22/25 13:25 85 ml ONCE ONE Administration Magnesium Citrate 300 ml 04/22/25 14:14 04/22/25 14:25 Magnesium Citrate 300 Ml Solution PO 04/22/25 14:15 300 ml ONCE ONE Administration Medical Decision Making Medical Decision Making [facility] Narrative: The patient is an 84-year-old woman who presents with a 24 hour history of abdominal pain. She says the pain radiates to her back. The pain is in her midabdomen. It does not lateralized. She does not appear in overt distress in her vital signs show a mildly elevated blood pressure but are otherwise unremarkable. Her physical exam was not highly suggestive of a surgical abdomen. Labs show a minimally elevated white count of 11.4. Differential shows 68.5% neutrophils. Chemistries show normal electrolytes. BUN is 23, creatinine 1.03. These values are not very far from her baseline. Lipase is normal. LFTs normal. CRP slightly elevated at 2.25. Urinalysis shows no ketones or other abnormalities. Specific gravity 1.025. The patient had a CAT scan of the abdomen to evaluate her pain which shows diffuse stool throughout the colon. The CT shows gallstones but no signs of cholecystitis. I re-examined the patient after the CT results were available. She does not have any right upper quadrant tenderness. She has a negative Beard's. My overall impression is that the patient is likely having symptoms from constipation based on the volume of stool on her CAT scan. She did not wish to have a rectal exam or an enema administered here at the hospital. She says she has a history of being constipated and does not take MiraLax very often despite this history. She would rather go home and try to have a bowel movement. She will be given a bottle of magnesium citrate that she will drink at home and she will be advised to take MiraLax daily. She should return if worse. Lab Data 04/22/25 11:15 04/22/25 11:15 Labs: Lab Results 04/22/25 04/22/25 Range/Units 11:15 13:42 WBC 11.4 H (4.8-10.8) X10*3/uL RBC 3.63 L (4.20-5.50) X10*6/uL Hgb 11.6 L (12.0-16.0) g/dl Hct 33.4 L (37.0-47.0) % MCV 92.0 (80.0-98.0) fL MCH 32.0 (27.0-33.0) pg MCHC 34.7 (31.0-35.0) g/dl RDW 13.4 (11.0-16.0) % Plt Count 267 (160-400) X10*3/uL MPV 11.1 (9.4-12.3) fL Immature Gran % (Auto) 0.5 H (0.0-0.4) % Neut % (Auto) 68.5 (45-73) % Lymph % (Auto) 18.5 L (20-40) % [place] % (Auto) 9.6 (2-11) % Eos % (Auto) 2.6 (0-4) % Baso % (Auto) 0.3 (0-2) % Lymph # (Auto) 2.1 (1.2-4.9) X10*3/uL [place] # (Auto) 1.1 (0.1-1.2) X10*3/uL Eos # (Auto) 0.3 (0.0-0.4) X10*3/uL Baso # (Auto) 0.0 (0.0-0.2) X10*3/uL Abs Immat Gran (auto) 0.06 H (0.00-0.03) X10*3/uL Absolute Neuts (auto) 7.8 (2.0-8.3) x10*3/uL Absolute Nucleated RBC 0.000 (0.0-0.012) X10*3/uL Nucleated RBC % (auto) 0.0 (0.0-0.2) /100WBC PT 11.2 (10.9-12.4) SEC INR 1.0 (0.9-1.1) Sodium 143 (135-145) mmol/L Potassium 4.3 (3.3-5.1) mmol/L Chloride 108 (96-108) mmol/L Carbon Dioxide 26 (22-29) mmol/L Anion Gap 13 (12-20) BUN 23 H (9-16) mg/dL Creatinine 1.03 (0.5-1.4) mg/dL Estim Creat Clear Calc 32.6 Estimated GFR 51 Random Glucose 94 (60-115) mg/dL Calcium 9.9 (8.4-10.2) mg/dL Magnesium 2.3 (1.6-2.6) mg/dL Total Bilirubin 0.3 (0.0-1.0) mg/dL Direct Bilirubin 0.1 (0.0-0.5) mg/dL AST 27 (5-31) U/L ALT 9 (0-31) U/L Alkaline Phosphatase 101 (39-117) U/L Troponin I High Sens 5.4 (<3.5-17.0) ng/L C-Reactive Protein 2.25 H (< or = 0.50) mg/dL Total Protein 6.6 (6.5-8.0) g/dL Albumin 4.0 (3.5-5.0) g/dL Lipase 42 (8-78) U/L Urine Color Yellow Urine Appearance Cloudy Urine pH 7.5 (5.0-9.0) Ur Specific [place] 1.025 (1.005-1.025) Urine Protein Negative (Neg-Trace) mg/dL Urine Glucose (UA) Negative (Negative) mg/dL Urine Ketones Negative (Negative) mg/dL Urine Blood Negative (Negative) Urine Nitrite Negative (Negative) Ur Leukocyte Esterase Negative (Negative) Ethyl Alcohol < 10 mg/dL Discharge Plan Discharge Clinical Impression: Abdominal pain, Constipation, Gallstones Patient Disposition: Home, Self-Care Instructions: Constipation (ED) Additional Instructions: The most significant finding on your CAT scan is the amount of stool in your colon. I think your symptoms are probably coming from constipation. You also have gallstones in your gallbladder but I do not think they are causing your symptoms today. Please drink the bottle of magnesium citrate today when you get home. My hope is this will help to start bowel movements. I think you will feel better if you have bowel movements. Please resume MiraLax and take it every day. Please follow up soon with your regular doctor. Return to the emergency room if significantly worse. Prescriptions: No Action metoprolol tartrate 25 mg tablet 25 mg PO BID mirtazapine 7.5 mg tablet 7.5 mg PO BEDTIME diltiazem HCl 120 mg capsule,extended release 12 hr 120 mg PO DAILY duloxetine 60 mg capsule,delayed release(DR/EC) 60 mg PO DAILY multivitamin Tablet 1 tab PO DAILY magnesium aspart,citrate,oxide 400 mg magnesium capsule PO PreserVision AREDS 2 Plus MV 200 mcg-15 mcg- 5 mg-1 mg capsule PO Referrals: Meredith Castro MD [Primary Care Provider, Internal Medicine] Interventions: ED Discharge Assessment Last Done: 04/22/25 14:38 Discharge Date/Time: 04/22/25 14:38 Print Language: Belarusian
[2025-04-22 10:21] VITALS: BP 158/60; PULSE 65; RESP 18; TEMP 36.8; O2SAT 96; BMI 26.4
--- NOTE | 2025-04-22 10:44 | ECG_ITS ---
Test Reason : ABDOMINAL PAIN Blood Pressure : */* mmHG Vent. Rate : 64 BPM Atrial Rate : 64 BPM P-R Int : 174 ms QRS Dur : 52 ms QT Int : 424 ms P-R-T Axes : 76 -3 39 degrees QTcB Int : 437 ms Sinus rhythm with frequent Premature ventricular complexes Otherwise normal ECG When compared with ECG of 01-Sep-2020 13:44, No significant changes seen Referred By: Al Orellana Electronically Signed By: ALMAZ RODRIGUEZ
[2025-04-22 11:25] LABS: MANUAL DIFF FLAG NO
[2025-04-22 11:34] LABS: INTERNATIONAL NORM RATIO 1.0 (0.9-1.1); Prothrombin Time 11.2 SEC (10.9-12.4)
[2025-04-22 11:38] LABS: Hematocrit 33.4 % (37.0-47.0); Hemoglobin 11.6 g/dl (12.0-16.0); Imm Gran Abs Auto 0.06 X10*3/uL (0.00-0.03); Imm Gran Pct Auto 0.5 % (0.0-0.4); Lymphocytes Absolute Auto 2.1 X10*3/uL (1.2-4.9); Mean Corpuscular HGB Conc 34.7 g/dl (31.0-35.0); Mean Corpuscular Hemoglobin 32.0 pg (27.0-33.0); Mean Corpuscular Volume 92.0 fL (80.0-98.0); NRBC Abs Auto 0.000 X10*3/uL (0.0-0.012); NRBC Pct Auto 0.0 /100WBC (0.0-0.2); Platelet Count 267 X10*3/uL (160-400); Red Blood Count 3.63 X10*6/uL (4.20-5.50); White Blood Count 11.4 X10*3/uL (4.8-10.8)
[2025-04-22 11:45] LABS: Alanine Aminotransferase 9 U/L (0-31); Albumin Level 4.0 g/dL (3.5-5.0); Alkaline Phosphatase 101 U/L (39-117); Anion Gap 13 (12-20); Aspartate Amino Transferase 27 U/L (5-31); Blood Urea Nitrogen 23 mg/dL (9-16); Calcium 9.9 mg/dL (8.4-10.2); Carbon Dioxide 26 mmol/L (22-29); Chloride 108 mmol/L (96-108); Creatinine Clr Calc Pharmacy 32.6; Estimated Glomerular Filt Rate 51; Lipase 42 U/L (8-78); Magnesium 2.3 mg/dL (1.6-2.6); Potassium 4.3 mmol/L (3.3-5.1); Sodium 143 mmol/L (135-145); Total Protein 6.6 g/dL (6.5-8.0)
[2025-04-22 11:48] LABS: Troponin-I High Sensitivity 5.4 ng/L (<3.5-17.0)
[2025-04-22] MEDS: iohexoL 350 MG/ML 100 ML INFUS..BTL IV (13:24)
[2025-04-22 13:40] VITALS: BP 149/87; PULSE 70; RESP 18; TEMP 36.4; O2SAT 96
[2025-04-22 13:49] LABS: Appearance Urine Cloudy; Glucose Urine UA Negative (Negative); PH 7.5 (5.0-9.0); Specific Gravity - Urine 1.025 (1.005-1.025)
[2025-04-22 14:38] VITALS: BP 119/64; PULSE 87; RESP 16; TEMP 36.5; O2SAT 98
== END 2025-04-22 14:38 | disposition home or self-care (01) ==
PROVIDERS: Emergency Provider Emergency Medicine; PCP Family Medicine
DX: K80.20 Calculus of gallbladder without cholecystitis without obstruction (principal); K59.00 Constipation, unspecified; R10.2 Pelvic and perineal pain; M54.50 Low back pain, unspecified; R11.0 Nausea; R94.31 Abnormal electrocardiogram [ECG] [EKG]; Z51.81 Encounter for therapeutic drug level monitoring; Z79.899 Other long term (current) drug therapy
CPT/HCPCS: 36415; 71046; 74177; 80048; 80076; 80307; 81003; 83690; 83735; 84484; 85025; 85610; 86140; 93005; 96361; 96374; 99202; 99284; 99285; J1308; Q9967

== ENCOUNTER → 2025-04-22 10:44 | Outpatient (BNV) | payer MEDICARE, SELFPAY | PROVIDERS: Emergency Provider Emergency Medicine; PCP Family Medicine; Visit Provider Radiology Diagnostic Radiology | DX: K57.30 Diverticulosis of large intestine without perforation or abscess without bleeding (principal); K59.00 Constipation, unspecified; R07.9 Chest pain, unspecified | CPT/HCPCS: 71046; 74177 ==

== ENCOUNTER → 2025-04-22 10:44 | Outpatient (BNV) | payer MEDICARE, SELFPAY | PROVIDERS: Emergency Provider Emergency Medicine; PCP Family Medicine; Visit Provider Internal Medicine | DX: I49.3 Ventricular premature depolarization (principal) | CPT/HCPCS: 93010 ==

== ENCOUNTER → 2025-05-08 10:56 | Outpatient (REF) | payer MEDICARE, SELFPAY ==
--- OUTSIDE RECORDS SUMMARY | 2025-04-08 08:17 | XMS_ITS | Continuity of Care Document ---
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 Unavailable Unavailable Allergies, Adverse Reactions, Alerts Substance Reaction Status Criticality OXYCODONE HCL (severe) Active No Information Medications Medication Instructions Dosage Effective Dates (start - stop) Status Comments duloxetine 30 mg capsule,delayed release take 1 capsule by ORAL route every morning with food - Active hydrocodone 5 mg-acetaminophen 325 mg tablet take 1 tablet by oral route every 6 hours as needed for pain 1.00 tablet - Active non acute pain diltiazem 120 mg tablet take 1 tablet by oral route every day 120 MG - Active Caltrate 600 plus D 600 mg (1,500 mg)-800 unit chewable tablet take 1 tablet by oral route every 2 days for 1 day 1 tablet - Active mirtazapine 7.5 mg tablet take 1 tablet by oral route every day at bedtime 7.5 MG - Active METOPROLOL SUCCINATE (unknown strength) take 1 tablet by oral route every day Not Available - Active Procedures Procedure Date DXA BONE DENSITY, AXIAL ASSAY OF VITAMIN D ASSAY OF SERUM ALBUMIN ASSAY ALKALINE PHOSPHATASE ALANINE AMINO (ALT) (SGPT) TRANSFERASE (AST) (SGOT) ASSAY OF UREA NITROGEN ASSAY OF CALCIUM COMPLETE CBC W/AUTO DIFF WBC ASSAY OF CREATININE BILIRUBIN, TOTAL OFFICE VISIT Level 5, EST ROUTINE VENIPUNCTURE Office OP Management Visit OFFICE VISIT Level 4, EST Office OP Management Visit N BLOCK INJ, SUPRASCAPULAR DRAIN/INJECT, MAJOR JOINT BILATERAL Lidocaine/Marcaine/Sterile Water 2024 Triamcinolone acetonide inj OFFICE VISIT Level 4, EST Prolia Denosumab, 1mg CHEMO, ANTI-NEOPL, SQ/IM ASSAY OF CALCIUM OFFICE VISIT Level 4, EST ROUTINE VENIPUNCTURE Office OP Management Visit N BLOCK INJ, SUPRASCAPULAR DRAIN/INJECT, MAJOR JOINT BILATERAL Lidocaine/Marcaine/Sterile Water 2023 Triamcinolone acetonide inj X-RAY EXAM OF SHOULDER X-RAY EXAM OF SHOULDER OFFICE VISIT Level 4, EST N BLOCK INJ, SUPRASCAPULAR DRAIN/INJECT, MAJOR JOINT BILATERAL Lidocaine/Marcaine/Sterile Water 2023 Triamcinolone acetonide inj OFFICE VISIT Level 4, EST N BLOCK INJ, SUPRASCAPULAR DRAIN/INJECT, MAJOR JOINT Lidocaine/Marcaine/Sterile Water 2023 Triamcinolone acetonide inj X-RAY EXAM OF KNEE, 3 OFFICE VISIT Level 4, EST Prolia Denosumab, 1mg CHEMO, ANTI-NEOPL, SQ/IM ASSAY OF SERUM ALBUMIN ASSAY ALKALINE PHOSPHATASE ALANINE AMINO (ALT) (SGPT) TRANSFERASE (AST) (SGOT) ASSAY OF UREA NITROGEN ASSAY OF CALCIUM COMPLETE CBC W/AUTO DIFF WBC ASSAY OF CREATININE BILIRUBIN, TOTAL ASSAY OF VITAMIN D X-RAY EXAM OF SHOULDER X Ray Exam Hip 2-3 Views DRAIN/INJECT, MAJOR JOINT DRAIN/INJECT, MAJOR JOINT Triamcinolone acetonide inj OFFICE VISIT Level 4, EST ROUTINE VENIPUNCTURE Prolia Denosumab, 1mg CHEMO, ANTI-NEOPL, SQ/IM X-RAY EXAM OF LOWER SPINE ASSAY OF SERUM ALBUMIN ASSAY ALKALINE PHOSPHATASE ALANINE AMINO (ALT) (SGPT) TRANSFERASE (AST) (SGOT) ASSAY OF UREA NITROGEN ASSAY OF CALCIUM COMPLETE CBC W/AUTO DIFF WBC ASSAY OF CREATININE BILIRUBIN, TOTAL ASSAY OF VITAMIN D OFFICE VISIT Level 4, EST ROUTINE VENIPUNCTURE DRAIN/INJECT, MAJOR JOINT Triamcinolone acetonide inj OFFICE VISIT Level 3, EST X-RAY EXAM OF KNEE, 3 DRAIN/INJECT, MAJOR JOINT DRAIN/INJECT, MAJOR JOINT Triamcinolone acetonide inj OFFICE VISIT Level 4, EST DXA BONE DENSITY, AXIAL OFFICE VISIT Level 4, EST PHONE E/M BY PHYS 11-20 MIN N BLOCK INJ, SCIATIC, SNG DRAIN/INJECT, MAJOR JOINT Lidocaine/Marcaine/Sterile Water 2020 Triamcinolone acetonide inj ASSAY OF SERUM ALBUMIN ASSAY ALKALINE PHOSPHATASE ALANINE AMINO (ALT) (SGPT) TRANSFERASE (AST) (SGOT) ASSAY OF UREA NITROGEN COMPLETE CBC W/AUTO DIFF WBC ASSAY OF CREATININE C-REACTIVE PROTEIN RBC SED RATE, NONAUTOMATED ASSAY OF SERUM POTASSIUM ASSAY OF SERUM SODIUM BILIRUBIN, TOTAL ASSAY OF BLOOD/URIC ACID OFFICE VISIT Level 4, EST ROUTINE VENIPUNCTURE OFFICE VISIT Level 3, EST N BLOCK INJ, SCIATIC, SNG INJ TRIGGER POINT, 1/2 MUSCL Lidocaine/Marcaine/Sterile Water 2019 Triamcinolone acetonide inj X Ray Exam Hip 2-3 Views X-RAY EXAM OF LOWER SPINE OFFICE VISIT Level 4, EST N BLOCK INJ, SCIATIC, SNG INJECT TRIGGER POINTS, =/> 3 Lidocaine/Marcaine/Sterile Water 2019 Triamcinolone acetonide inj OFFICE VISIT Level 3, EST N BLOCK INJ, SCIATIC, SNG DRAIN/INJECT, MAJOR JOINT INJECT TRIGGER POINTS, =/> 3 Lidocaine/Marcaine/Sterile Water 2019 Triamcinolone acetonide inj OFFICE VISIT Level 3, EST N BLOCK INJ, SCIATIC, SNG DRAIN/INJECT, MAJOR JOINT BILATERAL Lidocaine/Marcaine/Sterile Water 2019 Triamcinolone acetonide inj OFFICE VISIT Level 4, EST X Ray Exam Hip 2-3 Views N BLOCK INJ, SCIATIC DRAIN/INJECT, MAJOR JOINT INJ TENDON ORIGIN/INSERTION Lidocaine/Marcaine/Sterile Water 2018 Triamcinolone acetonide inj OFFICE VISIT Level 4, EST N BLOCK INJ, SCIATIC, SNG INJECT TRIGGER POINTS, =/> 3 Lidocaine/Marcaine/Sterile Water 2018 Triamcinolone acetonide inj OFFICE VISIT Level 4, EST X Ray Exam Hip 2-3 Views OFFICE VISIT Level 4, EST N BLOCK INJ, SCIATIC, SNG INJ TRIGGER POINT, 1/2 MUSCL Triamcinolone acetonide inj OFFICE VISIT Level 4, EST OFFICE VISIT Level 3, EST N BLOCK INJ, SCIATIC, SNG DRAIN/INJECT, MAJOR JOINT INJ TRIGGER POINT, 1/2 MUSCL Lidocaine/Marcaine/Sterile Water 2017 Triamcinolone acetonide inj OFFICE VISIT Level 4, EST N BLOCK INJ, SCIATIC INJECT TRIGGER POINTS, =/> 3 Lidocaine/Marcaine/Sterile Water 2017 Triamcinolone acetonide inj OFFICE VISIT Level 4, EST X-RAY EXAM OF KNEE, 3 N BLOCK INJ, SCIATIC DRAIN/INJECT, MAJOR JOINT INJECT TRIGGER POINTS, =/> 3 Triamcinolone acetonide inj Lidocaine/Marcaine/Sterile Water 2017 OFFICE/OP VISIT, NEW Level 4 Advance Directives Directive Yes / No Effective Date File Name No Information Encounters Encounter Description Practice Location Reason(s) For Visit Diagnoses Date Provider Providers Copied on Encounter [facility], [address] [address], [place], [place], [address], [place] tel:[phone] [facility] No Information 5 Bernard Decker. [address] [place], [place], [address] . tel: [phone] [facility], [address] [place], [place], [address], [place] tel:[phone] [facility] No Information Dec-0 5 Bernard Decker. [address] [place], [place], [address] . tel: [phone] OFFICE VISIT Level 5, [facility], [address], [id number], [place] tel:[phone] [facility] Osteoarthritis (chief complaint)Osteo porosis (chief complaint) Age-related osteoporosis without current pathological fractureLong term (current) use of opiate analgesicPerso nal history of (healed) osteoporosis fracturePrimar y osteoarthritis , right shoulderPrimar y osteoarthritis , left shoulder Apr-0 5 Bernard Decker. [address] [facility], [facility] [place] [address], [id number] . tel: [phone] Referring Provider: Jeronimo Mcnally, [address] [place] [address], [id number]. tel:[phone] OFFICE VISIT Level 4, [facility], [address], [id number], [place] tel:[phone] [facility] Osteoarthritis (chief complaint) Primary osteoarthritis , right shoulderPrimar y osteoarthritis , left shoulder Nov- 5 Bernard Decker. [address], [address], [id number] . tel: [phone] Referring Provider: Jeronimo Mcnally, [address] [place] [address], [id number]. tel:[phone] [facility], [address], [address], [place] tel:[phone] [facility] No Information 5 Bernard Decker. [address], [address], [place], [place], [address] . tel:[phone] OFFICE VISIT Level 4, [facility], [address], [place], [place], [address], [place] [phone] [facility] OA shoulders (chief complaint) Adhesive capsulitis of left shoulderAdhesi ve capsulitis of right shoulderPrimar y osteoarthritis , right shoulderPrimar y osteoarthritis , left shoulderPain in left shoulderPain in right shoulder 5 Bernard Decker. [address], [address], [place], [address] . tel: [phone] Referring Provider: Jeronimo Mcnally, [address] [place] [address], [id number]. tel:[phone] [facility], [address], [address], [place] [phone] [facility] No Information 4 Bernard Decker. [address], [place], [address] . tel: [phone] Referring Provider: Jeronimo Mcnally, [address], [place], [place], [address]. tel:[phone] OFFICE VISIT Level 4, [facility], [address], [address], [place] tel:[phone] [facility] Osteoarthritis (chief complaint)Osteo porosis (chief complaint) Age-related osteoporosis without current pathological fracturePrimar y osteoarthritis , right shoulderPrimar y osteoarthritis , left shoulder 4 Bernard Decker. [address], [place], [address] . tel: [phone] Referring Provider: Jeronimo Mcnally, [address] [facility] [address], [place], [place], [address]. tel:[phone] OFFICE VISIT Level 4, [facility], [address], [place], [place], [address], [place] tel:[phone] [facility] Osteoarthritis (chief complaint)Osteo porosis (chief complaint) Age-related osteoporosis without current pathological fracturePerson al history of (healed) osteoporosis fracturePrimar y osteoarthritis , right shoulderPrimar y osteoarthritis , left shoulderAdhesi ve capsulitis of right shoulderAdhesi ve capsulitis of left shoulder 4 Bernard Decker. [address], [address], [place], [place], [address] . tel: [phone] Referring Provider: Jeronimo Mcnally, [address] [employer] [facility] [address] [place], [place], [address]. tel:[phone] OFFICE VISIT Level 4, [facility], [address], [address], [place] tel:[phone] [facility] Osteoarthritis (chief complaint)Muscu loskeletal pain (chief complaint)Osteo porosis (chief complaint) Age-related osteoporosis without current pathological fracturePerson al history of (healed) osteoporosis fractureGenera lized osteoarthritis Adhesive capsulitis of right shoulderAdhesi ve capsulitis of left shoulderPain in left shoulderPain in right shoulder Nov- 4 Bernard Decker. [address], [place], [place], [address] . tel:[phone] Referring Provider: Jeronimo Mcnally, [address], [place], [place], [address]. tel:[phone] OFFICE VISIT Level 4, [facility], [address], [place], [place], [address], [place] tel:[phone] [facility] Osteoarthritis (chief complaint)Muscu loskeletal pain (chief complaint) Primary osteoarthritis , right shoulderUnilat eral primary osteoarthritis , right kneeAdhesive capsulitis of right shoulder 4 Bernard Decker. [address], [address], [place], [place], [address] . tel: [phone] Referring Provider: Jeronimo Mcnally, [address], [place], [place], [address]. tel:[phone] [facility], [address], [address], [place] tel:[phone] [facility] No Information 4 Bernard Decker. [address], [address], [place], [place], [address] . tel: [phone] Referring Provider: Jeronimo Mcnally, [address], [place], [place], [address]. tel:[phone] OFFICE VISIT Level 4, EST [facility], [address], [address], [place] tel:[phone] [facility] osteoarthritis (chief complaint)osteo porosis (chief complaint) Age-related osteoporosis without current pathological fracturePerson al history of (healed) osteoporosis fractureUnilat eral primary osteoarthritis , right kneeOther bursitis of knee, right kneePrimary osteoarthritis , right shoulderPain in right hip 4 Bernard Decker. [address], [address], [place], [place], [address] . tel: [phone] Referring Provider: Jeronimo Mcnally, [address], [place], [place], [address]. tel:[phone] [facility], [address], [address], [place] tel:[phone] [facility] No Information 3 Bernard Decker. [address], [place], [place], [address] . tel: [phone] Referring Provider: Jeronimo Mcnally, [address], [place], [place], [address]. tel:[phone] OFFICE VISIT Level 4, [facility], [address], [place], [place], [address], [place] tel:[phone] [facility] osteoporosis (chief complaint)low back pain (chief complaint) OsteoporosisPe rsonal history of fragility fractureOther low back pain Dec-0 3 Bernard Decker. [address], [place], [place], [address] . tel: [phone] Referring Provider: Jeronimo Mcnally, [address], [place], [place], [address]. tel:[phone] OFFICE VISIT Level 3, [facility], [address], [place], [place], [address], [place] tel:[phone] [facility] Musculoskeletal pain (chief complaint) Pain in right kneeSynovitis 2 Bernard Decker. [address], [address] . tel: [phone] Referring Provider: Jeronimo Mcnally, [address], [place], [place], [address]. tel:[phone] [facility], [address], [address], [place] tel:[phone] [facility] No Information 2 Bernard Decker. [address], [place], [place], [address] . tel: [phone] OFFICE VISIT Level 4, [facility], [address], [address], [place] tel:[phone] [facility] knee pain (chief complaint)spina l stenosis (chief complaint) Spinal stenosis, lumbar region with neurogenic claudicationPa in in right kneeUnilateral primary osteoarthritis , right kneeOther bursitis of knee, right knee Jun- 2 Bernard Decker. [address], [address], [place], [address] . tel: [phone] Referring Provider: Jeronimo Mcnally, [address], [place], [place], [address]. tel:[phone] OFFICE VISIT Level 4, [facility], [address], [address], [place] tel:[phone] [facility] Musculoskeletal pain (chief complaint)insom shagufta (chief complaint) Radiculopathy, lumbar regionSpinal stenosis, lumbar region with neurogenic claudicationIn somniaOth disrd of bone density and structure, multiple sites Apr-0 1 Bernard Decker. [address], [address], [address] . tel: [phone] Referring Provider: Jeronimo Mcnally, [address], [place], [address]. tel:[phone] PHONE E/M BY PHYS 11-20 MIN [facility], [address], [address], [place] tel:[phone] [facility] No Information Apr-0 1 Bernard Decker. [address], [address] [place] [address], [address] . tel:[phone] Referring Provider: Jeronimo Mcnally, [address], [place], [place], [address]. tel:[phone] OFFICE VISIT Level 4, [facility], [address], [address], [place] tel:[phone] [facility] back and hip pain (chief complaint)neck pain (chief complaint) Spinal stenosis, lumbar region with neurogenic claudicationTr ochanteric bursitis, left hipLow back pain 1 Bernard Decker. [address], [address], [place], [place], [address] . tel: [phone] Referring Provider: Jeronimo Mcnally, [address], [place], [place], [address]. tel:[phone] OFFICE VISIT Level 3, [facility], [address], [place], [place], [address], [place] tel:[phone] [facility] low back pain and sciatica (chief complaint) Spinal stenosis, lumbar region with neurogenic claudication 0 Bernard Decker. [address], [address], [place], [place], [address] . tel: [phone] Referring Provider: Jeronimo Mcnally, [address], [place], [place], [address]. tel:[phone] OFFICE VISIT Level 4, [facility], [address], [place], [place], [address], [place] tel:[phone] [facility] low back and hip pain (chief complaint) Pain in left hipLow back painMyalgia, other site 0 Bernard Decker. [address], [place], [place], [address] . tel: [phone] Referring Provider: Jeronimo Mcnally, [address], [place], [place], [address]. tel:[phone] OFFICE VISIT Level 3, [facility], [address], [place], [place], [address], [place] tel:[phone] [facility] Back pain/sciatica (chief complaint)red sow (chief complaint) Radiculopathy, lumbar regionSpinal stenosis, lumbar region with neurogenic claudicationMy algia, other siteOther nonthrombocyto penic purpuraLow back pain January- 0 Bernard Decker. [address], [place], [place], [address] . tel:[phone] Referring Provider: Jeronimo Mcnally, [address], [place], [place], [address]. tel:[phone] OFFICE VISIT Level 3, [facility], [address], [address], [place] tel:[phone] [facility] Musculoskeletal pain (chief complaint) Spinal stenosis, lumbar region with neurogenic claudicationMy algia, other siteLow back painLong term (current) use of opiate analgesicTroch anteric bursitis, right hip Apr- 0 Bernard Decker. [address], [place], [place], [address] . tel: [phone] Referring Provider: Jeronimo Mcnally, [address], [place], [place], [address]. tel:[phone] OFFICE VISIT Level 4, [facility], [address], [address], [place] tel:[phone] [facility] Musculoskeletal pain (chief complaint) Radiculopathy, lumbar regionSpinal stenosis, lumbar region with neurogenic claudicationTr ochanteric bursitis, right hipTrochanteri c bursitis, left hipLow back pain Feb- 0 Bernard Decker. [address], [place], [place], [address] . tel:[phone] Referring Provider: Jeronimo Mcnally, [address] [employer] [address], [place], [place], [address]. tel:[phone] OFFICE VISIT Level 4, [facility], [address], [place], [place], [address], [place] tel:[phone] [facility] Musculoskeletal pain (chief complaint) Radiculopathy, lumbar regionTrochant romina bursitis, right hipGluteal tendinitis, right hipLong term (current) use of opiate analgesicPain in right hipLow back pain 0 9 Bernard Decker. [address], [place], [place], [address] . tel: [phone] Referring Provider: Jeronimo Mcnally, [address], [place], [place], [address]. tel:[phone] OFFICE VISIT Level 4, [facility], [address], [place], [place], [address], [place] tel:[phone] [facility] Musculoskeletal pain (chief complaint) Radiculopathy, lumbar regionLow back painMyalgia, other site 9 Bernard Decker. [address], [place], [place], [address] . tel: [phone] Referring Provider: Jeronimo Mcnally, [address], [place], [place], [address]. tel:[phone] OFFICE VISIT Level 4, [facility], [address], [place], [address], [place] tel:[phone] [facility] Musculoskeletal pain (chief complaint)bruis ing (chief complaint) Unilateral primary osteoarthritis , left hipPain in left hipSpinal stenosis, lumbar region with neurogenic claudicationPu rpura Dec-2 9 Bernard Decker. [address], [address], [place], [place], [address] . tel: [phone] Referring Provider: Jeronimo Mcnally, [address], [place], [place], [address]. tel:[phone] OFFICE VISIT Level 4, [facility], [address], [place], [place], [address], [place] tel:[phone] [facility] Back pain (chief complaint) Low back painRadiculopa thy, lumbar regionMyalgia, other siteSpinal stenosis, lumbar region with neurogenic claudication 9 Bernard Decker. [address], [place], [place], [address] . tel: [phone] Referring Provider: Jeronimo Mcnally, [address], [place], [place], [address]. tel:[phone] OFFICE VISIT Level 3, [facility], [address], [place], [place], [address], [place] tel:[phone] [facility] sciatica (chief complaint) Radiculopathy, lumbar region 9 Bernard Decker. [address], [place], [place], [address] . tel: [phone] Referring Provider: Jeronimo Mcnally, [address], [place], [place], [address]. tel:[phone] OFFICE VISIT Level 4, [facility], [address], [place], [address], [place] tel:[phone] [facility] Musculoskeletal pain (chief complaint) Radiculopathy, lumbar regionTrochant romina bursitis, right hipMyalgia, other siteLow back pain 8 Bernard Decker. [address], [place], [place], [address] . tel: [phone] Referring Provider: Jeronimo Mcnally, [address], [place], [place], [address]. tel:[phone] OFFICE VISIT Level 4, [facility], [address], [place], [place], [address], [place] tel:[phone] [facility] Musculoskeletal pain (chief complaint) Radiculopathy, lumbar regionMyalgia Mar-2 - 8 Bernard Decker. [address] [facility] [facility], [place], [place], [address] . tel: [phone] Referring Provider: Jeronimo Mcnally, [address] [facility] [address], [place], [place], [address]. tel:[phone] OFFICE/OP VISIT, [facility] Level 4 [facility], [address] [address], [place], [place], [address], [place] tel:[phone] [facility] Musculoskeletal pain (chief complaint) Pain in right kneeRadiculopa thy, lumbar regionTrochant romina bursitis, right hipMyalgia Mar-0 - 8 Bernard Decker. [address] [facility], [address], [place], [place], [address] . tel: [phone] Referring Provider: Jeronimo Mcnally, [address] [facility] [address], [place], [place], [address]. tel:[phone] Family History Family Member Type Diagnosis Age At Onset Father Problem (finding) Mother Problem (finding) Payers Payer name Insurance type Covered democrat ID Izaiah mcbride(s) Medicare MB [id number] [facility] [id number] Social History Type Description Quantity Date Captured Comments Alcohol Use Details Unknown Caffeine Use Details Unknown Tobacco Use Status No Information Smoking Status No Information Sex Female Chief Complaint And Reason For Visit No Information Plan Of Treatment Date Type Action Status Referral Ordered: MARCY FERNANDEZ -Orthopedic Surgery (related to Radiculopathy, lumbar region) ordered Referral Referred To: MARCY FERNANDEZ [address] [place] [address]
[address] [place], [place], [id number] Ordered: Referrals: Orthopedic Surgery. MARCY FERNANDEZ. Consult ordered Patient Education Joint Injections: After Your Visit completed Patient Education Joint Injections: After Your Visit completed Patient Education Joint Injections: After Your Visit completed Patient Education Joint Injections: After Your Visit completed Patient Education Joint Injections: After Your Visit completed Patient Education Joint Injections: After Your Visit completed Patient Education Joint Injections: After Your Visit completed Patient Education Joint Injections: After Your Visit completed Patient Education Joint Injections: After Your Visit completed Patient Education Joint Injections: After Your Visit completed Patient Education Joint Injections: After Your Visit completed Patient Education Joint Injections: After Your Visit completed Patient Education Joint Injections: After Your Visit completed Patient Education Joint Injections: After Your Visit completed Patient Education Joint Injections: After Your Visit completed Patient Education Joint Injections: After Your Visit completed Patient Education Joint Injections: After Your Visit completed History Of Present Illness Encounter Date Complaint History Of Prese nt Illness Osteoarthritis Osteoporosis Osteoarthritis OA shoulders Osteoarthritis Osteoporosis Osteoarthritis Osteoporosis Osteoarthritis Musculoskeletal pain Osteoporosis Osteoarthritis Musculoskeletal pain osteoarthritis osteoporosis osteoporosis low back pain Musculoskeletal pain knee pain spinal stenosis Musculoskeletal pain insomnia back and hip pain neck pain low back pain and sciatica low back and hip pain Back pain/sciatica red sow Musculoskeletal pain Musculoskeletal pain Musculoskeletal pain Musculoskeletal pain bruising Musculoskeletal pain Back pain sciatica Musculoskeletal pain Musculoskeletal pain Musculoskeletal pain Instructions Date Instruction Additional Infor mation No Information Assessments Type Assessment Date No Information
--- OUTSIDE RECORDS SUMMARY | 2025-05-08 11:02 | XMS_ITS | Clinical Summary ---
Author Organization [facility] ity Address [address] [place] [address] Care Team Providers Care Commodity Director Name Role Phone Unavailable Primary Care Provider [...]
--- OUTSIDE RECORDS SUMMARY | 2025-05-08 11:02 | XMS_ITS | Patient Health Record ---
Author Organization [facility] Address [address] [place] [address] Care Team Providers Care Anatomic Pathology Manager Name Role Phone Zulema Lny Primary Care Provid er [phone] Blanca Brannon Unavailable [phone] Abreu, Carey Unavailable [phone] Allergies Allergen (clinical drug ingredient) Drug/Non Drug Allergy documented on EMR Reaction Allergy Type Onset Date Status oxycodone Oxycodone Unknown Drug Allergy Active Results Component Value Reference Range Notes CULTURE, URINE, ROUTINE Reviewed date:01/19/2025 11:56:01 AM Interpretation: Performing Lab:[facility], [place], [address] [place], [address] [address] Zehra Chan Notes/Report: NON-FASTING NON-FASTING NON-FASTING NON-FASTING REFLEXIVE URINE CULTURE CULT URE INDICATED - RESULTS TO FOLLOW Urine Culture and Sensitivit y Reviewed date:01/19/2025 11:56:00 AM Interpretation: Performing Lab:[facility], [facility] [facility] [address] [place], [address] [address] Zehra Chan Notes/Report: NON-FASTING NON-FASTING NON-FASTING NON-FASTING CULTURE, URINE, ROUTINE SEE NOTE CULTURE, URINE, ROUTINE Micro Number: [id number] Test Status: Final Specimen Source: Urine Specimen Quality: Adequate Result: 50,000-100,000 CFU/mL of Enterococcus faecalis E.faecalis INT JR AMPICILLIN S <=2 CIPROFLOXACIN S 1 NITROFURANTOIN S <=16 VANCOMYCIN S 1 S = Susceptible I = Intermediate R = Resistant NS = Not susceptible SDD = Susceptible Dose Dependent * = Not Tested NR = Not Reported NN = See Therapy Comments CBC (INCLUDES DIFF/PLT) Reviewed date:01/19/2025 11:56:00 AM Interpretation: Performing Lab:[facility], [place], [address], [place], [address] [address] Zehra Chan Notes/Report: NON-FASTING NON-FASTING NON-FASTING NON-FASTING URINALYSIS, COMPLETE W/REFLE X TO CULTURE Reviewed date:01/19/2025 11:56:00 AM Interpretation: Performing Lab:[place], [facility], [address], [place], [address] [address] Zehra Chan Notes/Report: NON-FASTING NON-FASTING NON-FASTING NON-FASTING COMPREHENSIVE METABOLIC PANE L Reviewed date:01/19/2025 11:56:00 AM Interpretation: Performing Lab:[facility], [place], [address], [place], [address] [address] Zehra Chan Notes/Report: NON-FASTING NON-FASTING NON-FASTING NON-FASTING PT AND PTT with INR Reviewed date:01/19/2025 11:56:00 AM Interpretation: Performing Lab:[facility], [place], [address], [place], [address] [address] Zehra Chan Notes/Report: NON-FASTING NON-FASTING NON-FASTING NON-FASTING PARTIAL THROMBOPLASTIN TIME, ACTIVATED TNP TEST NOT PERFORMED Specimen unsuitable for testing due to hemolysis. INR TNP TEST NOT PERFORMED Specimen unsuitable for testing due to hemolysis. Reason For Referral Reason pre-op consult Pmh x: Other complications of anesthesia Diagnosis 1 Pre-op evaluation (Z 01.818) Referral Organization [facility] Referring Provider First Name Zulema wallace Referring Provider Last Name Marcelo lane Referring Provider Speciality Nurse Jannette titioner Referred Provider Specialty Anesthesiolo gy General Notes Lizett Barba 0 01/16/2025 12:04:26 PM >SENT SMS Referral [...] W/U Status Risk Notes Problem Chronic pain (44954078) Chronic pain (G89.29) Active confirmed pain level improved since surgery. Still adjusting the levels Problem Cardiac arrhythmia (390584110) Cardiac arrhythmia (I49.9) Active confirmed well controlled, continue current therapy Problem Pain of right shoulder region (finding) (9131895355) Pain in right shoulder (M25.511) Active confirmed Problem Shoulder joint pain (922443695) Pain in left shoulder (M25.512) Active confirmed Problem Acute cystitis (38546704) Acute cystitis without hematuria (N30.00) Active confirmed antibx Problem History of circulatory system disease (141416055) Personal history of other diseases of the circulatory system (Z86.79) Active confirmed Problem Chronic pain (30928068) Other chronic pain (G89.29) Active confirmed Problem Moderate recurrent major depression (48405919) Moderate episode of recurrent major depressive disorder (F33.1) Active confirmed stable continue current therapy Problem Postprocedural states (359454735) Other specified postprocedural states (Z98.890) Active confirmed Problem Abnormal gait (26419235) Impaired gait (R26.9) Active confirmed 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 Problem High risk drug monitoring status (255180440) care home use of opioid (Z79.891) Active confirmed Vital [...] Date Provider Diagnosis [facility] [address] [place] [address] 01/15/2025 Zulema Cox Pre-op evaluation Z01.818 ; Encounter to establish care Z76.89 ; Arthritis M19.90 ; Brain aneurysm I67.1 ; Chronic pain G89.29 ; Cardiac arrhythmia I49.9 and Other complications of anesthesia, subsequent encounter T88.59XD [facility] [address] [place] [address] 01/20/2025 Misty Abreu Pre-op evaluation Z01.818 ; Pain in left shoulder M25.512 ; Pain in right shoulder M25.511 ; care home use of opioid Z79.891 ; Chronic pain G89.29 ; Other specified postprocedural states Z98.890 ; Personal history of other diseases of the circulatory system Z86.79 ; Cardiac arrhythmia I49.9 ; Moderate episode of recurrent major depressive disorder F33.1 ; Acute cystitis without hematuria N30.00 ; Impaired gait R26.9 and Dependence on cane Z99.89 [facility] [address] [place] [address] 02/13/2025 Zulema Cox Postoperative follow-up Z09 and Chronic pain G89.29 [facility] [address] [place] [address] 01/16/2025 Zulema Cox [facility] [address] [address] 01/19/2025 [facility] Patricia Marcelo Valenteha Pre-op evaluation Z01.818 [facility] [address] [place] [address] 02/02/2025 [facility] [address] [place] [address] 02/02[facility]20[facility] Assessments Encounter Date Diagnosis (ICD Code) Assessment [...] in 1 week. Will find a local painting manager there to continue PSN adjustment. They will [...] Brain aneurysm (ICD-10 - I67.1) Stable 01/20/2025 care home use of opioid (ICD-10 - Z79.891) 01/15/2025 Chronic pain (ICD-10 - G89.29) Under the care of pain management. Pending PNS implantation 01/20/2025 Chronic pain (ICD-10 - G89.29) 01/15/2025 Cardiac arrhythmia (ICD-10 - I49.9) pe rpt: skipped beats --> PVCs, will request records from previous PCP & abrasive band winder Under the care of her abrasive band winder. Will request records 01/20/2025 Other specified postprocedural [...] Date Coverage End Date MEDICARE [address] [address] [place] [address] [phone] [id number] ALYSSAKIM BONILLANE Self - patient is the insured [facility] Medicare Advantage [address] [address] [place] [address] [phone] [id number] ALYSSAYASHIRA BONILLAANKIT Self - patient is the insured [facility] [address] [place] [address] [phone] [id number] BRENDEN ANKIT Self - patient is the insured Medical (General) History Surgical History Surgery Date(Month/Year) brain aneurysm 20 years ago hips replase [phone] left shoulder 2015 back surgery 2020
--- OUTSIDE RECORDS SUMMARY | 2025-05-08 11:02 | XMS_ITS | Encounter Summary ---
Author Organization [facility] Address [address] [place] [address] Phone Care Team Providers Care Forming And Assembling Supervisor Name Role Phone Meredith Castro MD, MPH Primary Care Provid er Meredith Castro MD, MPH Unavailable [phone] Crys Dang MD Unavailable [phone] Encounter Details Date Type Department Care Team (Late st Contact Info) Description 09/22/2022 Procedure [facility], Ct Scan - [facility] [address] [place] [address] Social History Tobacco Use Types Packs/Day Years [...] Description 06/11/2025 10:40 AM EDT Office Visit [facility] [address] [place] [address] Darren Bocanegra MD [address] [place] [address] 04/20/2026 10:40 AM EDT Office Visit [facility] [address] [place] [address] Meredith Castro MD, MPH [address] [facility] [place] [address] Darren Bocanegra MD [address] [facility] [address] [place] [address] documented as of this encounter Visit Diagnoses Not on filedocumented in this encounter Care Teams Forming And Assembling Supervisor Relationship Specialty Start Date End Date Meredith Castro MD, MPH [address] [place] [address] [address] [place] [address] PCP - General Family Medicine 09/14/20 Meredith Castro MD, MPH [address] [place] [address] Insurance Assigned Provider 12/22/23 Crys Dang MD [address] [place] [address] Cardiology 04/25/24 documented as of this encounter Additional Source Comments The information contained in this document represents components of the legal health record. It is not the complete legal health record.[facility]
--- OUTSIDE RECORDS SUMMARY | 2025-05-08 11:02 | XMS_ITS | Patient Health Record ---
Author Organization [facility] Address [address] [place] [address] Care Team Providers Care Cylinder Honer Name Role Phone Kristin Jaramillo MD Primary Care Provider Tha Thompson Unavailable [phone] Allergies Allergen (clinical drug ingredient) Drug/Non Drug [...] Problem Status W/U Status Risk Notes Problem 483525437 Encounter for screening for malignant neoplasm of colon (Z12.11) Active confirmed Problem 13986191 Calculus of gallbladder without cholecystitis without obstruction (K80.20) Active confirmed Problem 832141675 Nausea (R11.0) Active confirmed Problem 25898952 Anorexia (R63.0) Active confirmed Problem Screening for malignant neoplasm of rectum (168681441) Encounter for screening for malignant neoplasm of rectum (Z12.12) Active confirmed Problem 625888457 Gastroesophageal reflux disease, esophagitis presence not specified (K21.9) Active confirmed Problem 970471004 Long-term use of aspirin therapy (Z79.82) Active confirmed Problem 42214035 Constipation, unspecified constipation type (K59.00) Active confirmed Plan Of Treatment Pending Test Test Name Order Date NUC HIDA SCAN 03/17/2020 Future Test Test Name Order Date COLONOSCOPY 03/30/2016 Insurance Providers Payer Name Payer Address Payer Phone Subscriber Number Group Number Insured Name Patient Relationship to Insured Coverage Start Date Coverage End Date MEDICARE OF [place] [address] [place] [address] [id number] ANKIT WILCOX Self - patient is the insured [employer] CLAIMS [address] [place] [address] [phone] [id number] ANKIT WILCOX Self - patient is the insured Medical (General) History Medical History History ICD Code GERD--EGD 1996-mild GERD, neg Hpylori--r estarted Omeprazole in 03/2020 Diverticulitis--admitted to hospital in [place] for IV antibiotics--winter Denies MT,DM,CVA,Lung disease,renal dise ase Pelvic fracture after a fall in 02/2016--seeing Dr. 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
--- NOTE | 2025-05-08 11:03 | CA_ITS ---
Transthoracic Echocardiogram Patient (Last, First, Middle): Kelley Carnes E Gender: F Date of : 1940 Age: 84 Procedure Date: 05/08/2025 Procedure Type: Transthoracic Echocardiogram Location: OP Height: 152.4 cm Weight: 59.88 kg BSA: 1.56 m2 Heart Rate: bpm BP: 116 / [address]: Referring MD: Sriram iLnk MD Assistive Technology Specialist: Frederick Amin MD Symptoms: PVC I49.3 Study Quality: Good ECG Rhythm: Sinus with extra beats Conclusions: - 1. Normal LV ejection fraction of 55-60% with impaired relaxation filling pattern 2. Mildly dilated left atrium 3. Mqjm-up-mjyqvlsw mitral regurgitation and trace aortic regurgitation 4. Normal RV systolic pressure 5. No gross pericardial effusion Findings Left Ventricle Normal left ventricular size, thickness, and systolic function. The visually estimated ejection fraction is between 55-60%. Spectral Doppler is indicative of an impaired relaxation filling pattern. E/E prime ratio is between 8 and 15 consistent with indeterminate filling pressures. Right Ventricle Normal right ventricular cavity size and systolic function. Atria The left atrium is mildly dilated. There is lipomatous hypertrophy of the interatrial septum. There is no evidence of interatrial shunt. The right atrium is normal in size. Aortic Valve There is mild calcification of the aortic valve. There is no aortic valve stenosis. There is trace (trivial) aortic valve regurgitation. Mitral Valve There is mild anterior mitral leaflet thickening. There is mild to moderate mitral valve regurgitation. There is no mitral valve stenosis. Pulmonic Valve The pulmonic valve is likely normal. Tricuspid Valve Normal tricuspid valve structure. There is trace tricuspid valve regurgitation. The right ventricular systolic pressure is normal. The right ventricular systolic pressure is 30 mmHg. Normal right atrial pressure. There is no evidence of pulmonary hypertension. Great Vessels All visible segments of the aorta are normal in size. The pulmonary artery was not well visualized. There is no dilatation of the ascending aorta measuring 3.10 cm. Venous The inferior vena cava is normal in size and collapses greater than 50% with inspiration. Pericardium/Pleural There is no evidence of pericardial effusion. Prior Study Comparison No prior study available for comparison. Measurements 2D Linear Measurements IVSd: 1.00 0.6-0.9/0.6-1.0 cm LVIDd: 3.49 3.9-5.3/4.2-5.9 cm LVIDd Index: 2.24 2.4-3.2/2.2-3.1 cm/m2 LVIDs: 2.36 2.0-3.6 cm LVPWd: 1.01 0.7-1.1 cm Ao Root: 2.70 2.1-3.5 cm LA Diam: 3.30 2.7-3.8/3.0-4.0 cm LAIDs Index: 2.12 1.5-2.3 cm/m2 LV Mass: 128.82 67-162/88-224 g LV Mass Index: 82.58 43-95/49-115 g/m2 LVOT Diam: 2.00 3.0+(-)1.3 cm 2D Systolic Function EF 4C: 60.30 >55% EF 2C: 55.30 >55% EF BiP: 56.20 >55% Mitral Valve MV Pk E: 0.90 MV PK A: 0.73 MV Decel Time: 160.00 E/A: 1.20 E'Lateral: 6.42 E'Medial: 5.66 E/E' Med: 15.80 E/E' Lat: 13.90 PHT: 47.00 MVA PHT: 4.68 Decel [place]: 5.60 Aortic Valve AoV Pk Vitor: 1.34 AoV Mn Vitor: 0.82 AoV VTI: 0.37 AoV Pk Grad: 7.00 Aov Mn Grad: 3.00 EDITA Cont.VTI: 1.94 LVOT LVOT Pk Vitor: 0.73 LVOT Mn Vitor: 0.46 LVOT VTI: 0.23 LVOT Pk Grad: 2.00 LVOT Mn Grad: 1.00 LVOT Diam: 2.00 LVOT Area: 3.14 Diastolic Function MV Pk E: 0.90 MV Pk A: 0.73 E/A: 1.20 E'Medial: 5.66 E/E' Med: 15.80 E' Laterial: 6.42 E/E' Lat: 13.90 Right Ventricle TAPSE (mm): 26.00 TVS' Vitor: 12.00 Tricuspid Valve TR Pk Vitor: 2.60 TR Pk Grad: 27.00 RA Press: 3.00 RVSP: 30.00 Great Vessels Aorta Ao Root-2D: 2.70 2.0-3.7 cm Ao Asc: 3.10 2.1-3.4 cm Pulmonary Valve PV Pk Vitor: 0.67 Peak PV Grad: 2.00 Updated in Other Vendor System with Status of Final Amandeep Ferguson MD electronically signed on 05/09/2025 11:59:34 AM with status of Final
== END ==
LOC: HO.CARD 10:56
PROVIDERS: PCP Family Medicine; Visit Provider Internal Medicine Cardiovascular Disease
DX: I49.3 Ventricular premature depolarization (principal)
CPT/HCPCS: 93306

== ENCOUNTER → 2025-05-08 11:03 | Outpatient (BNV) | payer MEDICARE, SELFPAY | PROVIDERS: PCP Family Medicine; Visit Provider Internal Medicine Cardiovascular Disease | DX: I34.0 Nonrheumatic mitral (valve) insufficiency (principal); I35.8 Other nonrheumatic aortic valve disorders | CPT/HCPCS: 93306 ==